=== PATIENT | male | born 1955 | race Caucasian/White ===

== ENCOUNTER 2016-07-13 12:22 | Inpatient (IN) | payer OTHER ==
[~2016-07-13] VITALS: Ht 180.3 cm; Wt 76.9 kg
[2016-07-13] MEDS ORDERED: SOD CHLORIDE 0.9% 150 ML IV STA (12:41)
[2016-07-13] MEDS ORDERED: morphine 4 MG/ML VIAL IV STA (12:55)
[2016-07-13] MEDS ORDERED: TRAM-40 PO (12:58)
[2016-07-13] MEDS ORDERED: OXYC-279 PO (12:58)
[2016-07-13 13:01] LABS: ADD SCAN DIFF NO
[2016-07-13 13:04] LABS: BASOPHIL # 0.1 10^3/ul (0.0-0.1); BASOPHILS % 0.4 % (0.0-2.0); EOSINOPHILS % 0.1 % (0.0-7.0); HEMATOCRIT 41.2 % (42.0-52.0); LYMPHOCYTES # 0.7 10^3/ul (0.8-2.9); LYMPHOCYTES % 4.6 % (15.0-51.0); MEAN CORPUSCULAR HEMOGLOBIN 29.6 pg (29.0-33.0); MEAN CORPUSCULAR VOLUME 87.1 fl (82.0-101.0); MEAN PLATELET VOLUME 9.4 fl (7.4-10.4); MONOCYTE # 1.3 10^3/ul (0.3-0.9); MONOCYTES % 8.7 % (0.0-11.0); NEUTROPHIL # 12.4 10^3/ul (1.6-7.5); NEUTROPHILS % 85.6 % (39.0-77.0); PLATELET COUNT 314 10^3/UL (140-415); RED BLOOD COUNT 4.73 10^6/ul (4.70-6.10); RED CELL DISTRIBUTION WIDTH 14.7 % (11.5-14.5); WHITE BLOOD COUNT 14.5 10^3/ul (4.8-10.8)
--- NOTE | 2016-07-13 13:08 | RADRPT ---
PROCEDURE: XR Chest. CLINICAL INDICATION: Pain TECHNIQUE: Single frontal view of the chest was obtained. COMPARISON: None. FINDINGS: The heart and mediastinum are within normal limits. The lungs are clear. There is no significant pleural effusion or pneumothorax. IMPRESSION: No acute disease. RPTAT: EE Physician Avinash Date Time Electronically viewed and signed by Terence Cole Physician on 07/13/2016 13:08 RA/
[2016-07-13 13:14] LABS: ALBUMIN 3.4 g/dl (3.3-4.9); POTASSIUM 3.5 mmol/L (3.5-5.1)
[2016-07-13 13:16] LABS: BILIRUBIN,INDIRECT 0.2 mg/dl (0-1.1); BILIRUBIN,TOTAL 0.2 mg/dl (0.2-1.3); CREATININE 1.17 mg/dl (0.61-1.24); INR 2.21; PROTIME 24.8 Sec (12.2-14.2); PT RATIO 1.9
[2016-07-13 13:17] LABS: ALBUMIN/GLOBULIN RATIO 0.82; CALCIUM 9.5 mg/dl (8.4-10.2); PARTIAL THROMBOPLASTIN TIME 49.1 Sec (25.0-35.0); TOTAL PROTEIN 7.5 g/dl (6.1-8.1)
--- NOTE | 2016-07-13 13:25 | ERA ---
ER Documentation Chief Complaint Date/Time DATE: 07/13/16 TIME: 13:21 Chief Complaint sent by oncologist for dehydration and poor intake. no diarrhea or vomiting HPI 61-year-old male initially went to an outside hospital approximately 4-5 days ago which time he was diagnosed with a widely metastatic malignancy of uncertain etiology. He was apparently hydrated and sent home. He then followed up at an outside emergency department yesterday where again labs were performed, he was hydrated and referred home. He returned to the emergency department today with a complaint of generalized weakness. Patient's family states he is having dark stools. He has no vomiting or hematemesis. Patient reports being unable to maintain fluids. Patient reports diffuse, nonspecific discomfort essentially all over with no focal localizing pain. Patient saw his oncologist today who referred him to the emergency department for evaluation. ROS All systems reviewed and are negative except as per history of present illness. Medications Home Meds Reported Medications Tramadol Hcl* (Ultram*) 50 Mg Tablet, 50 MG PO Q12 Y for MODERATE PAIN LEVEL 4-6 , TAB 07/13/16 Oxycodone HCl/Acetaminophen (Percocet 5-325 mg Tablet) 1 Each Tablet, 1 EACH PO Q6 Y for SEVERE PAIN LEVEL 7-10, TAB 07/13/16 Allergies Allergies: Coded Allergies: No Known Allergy (Unverified , 07/13/16) PMhx/Soc History of Surgery: Yes (right ankle) Anesthesia Reaction: No Hx Neurological Disorder: No Hx Respiratory Disorders: No Hx Cardiac Disorders: Yes (htn) Hx Psychiatric Problems: No Hx Miscellaneous Medical Probl: Yes (liver ca) Hx Alcohol Use: Yes Hx Substance Use: No Hx Tobacco Use: No Smoking Status: Former smoker FmHx Noncontributory for chief complaint Physical Exam Vitals Vital Signs Date Time Temp Pulse Resp B/P Pulse Ox O2 Delivery O2 Flow Rate FiO2 07/13/16 12:23 97.9 97 20 135/84 98 Physical Exam GENERAL: Patient is frail, ill and sick appearing. HEENT: Pupils equal, round, and reactive to light. EOMI. There is no scleral icterus. NECK: C-spine is soft and supple, there is no meningismus. There is no cervical lymphadenopathy. LUNGS: Clear to auscultation bilaterally. There are no rales, wheezes or rhonchi. HEART: Regular rate and rhythm, no murmurs, clicks, rubs or gallops. ABDOMEN: Soft, mildly distended. Nontender to palpation. No rebound or guarding EXTREMITIES: 1+ edema bilaterally without cyanosis or clubbing NEURO: The patient moves all four extremities with 5/5 strength. Cranial nerves II - XII are intact. Normal gait. Alert and oriented SKIN: There is no apparent rash or petechiae. HEME/LYMPHATIC: There is no evidence of excessive bruising or lymphedema. PSYCHIATRIC: The patient does not appear anxious or depressed. Result Diagram: 07/13/16 1255 07/13/16 1255 Results 24 hrs Laboratory Tests Test 07/13/16 12:55 White Blood Count 14.510^3/ul Red Blood Count 4.7310^6/ul Hemoglobin 14.0g/dl Hematocrit 41.2% Mean Corpuscular Volume 87.1fl Mean Corpuscular Hemoglobin 29.6pg Mean Corpuscular Hemoglobin Concent 34.0g/dl Red Cell Distribution Width 14.7% Platelet Count 05179^3/UL Mean Platelet Volume 9.4fl Neutrophils % 85.6% Lymphocytes % 4.6% Monocytes % 8.7% Eosinophils % 0.1% Basophils % 0.4% Nucleated Red Blood Cells % 0.0/100WBC Neutrophils # 12.410^3/ul Lymphocytes # 0.710^3/ul Monocytes # 1.310^3/ul Eosinophils # 0.010^3/ul Basophils # 0.110^3/ul Nucleated Red Blood Cells # 0.010^3/ul Prothrombin Time 24.8Sec Prothrombin Time Ratio 1.9 INR International Normalized Ratio 2.21 Activated Partial Thromboplast Time 49.1Sec Sodium Level 130mmol/L Potassium Level 3.5mmol/L Chloride Level 94mmol/L Carbon Dioxide Level 19mmol/L Anion Gap 21 Blood Urea Nitrogen 30mg/dl Creatinine 1.17mg/dl Glucose Level 96mg/dl Calcium Level 9.5mg/dl Total Bilirubin 0.2mg/dl Direct Bilirubin 0.00mg/dl Indirect Bilirubin 0.2mg/dl Aspartate Amino Transf (AST/SGOT) 295IU/L Alanine Aminotransferase (ALT/SGPT) 75IU/L Alkaline Phosphatase 608IU/L Total Protein 7.5g/dl Albumin 3.4g/dl Globulin 4.10g/dl Albumin/Globulin Ratio 0.82 Lipase 101U/L Current Medications Medications (Trade) Dose Ordered Sig/Coleman Route PRN Reason Start Time Stop Time Status Last Admin Dose Admin Sodium Chloride (NS) 150 ml @ 150 mls/hr Q1H STAT IV 07/13/16 12:41 07/13/16 13:40 07/13/16 13:01 Morphine Sulfate (morphine) 4 mg ONCE STAT IV 07/13/16 12:55 07/13/16 12:57 DC 07/13/16 13:07 Procedures/MDM Patient was taken to a room, seen and evaluated. Comfort measures were initiated. Diagnostic tests were ordered and reviewed. 3 LEAD RHYTHM STRIP: Normal sinus rhythm without ectopy RADIOLOGY: I reviewed studies from the outside facility demonstrating widely metastatic disease CONSULTATION: Dr. Pham was notified for admission. I spoke with in oncology who will be seeing the patient. REEVALUATION: Patient began hydration and will be admitted to the hospital MEDICAL DECISION MAKIN-year-old male presents to the emergency department with new diagnosis of widely metastatic cancer. At this time, patient presents clearly dehydrated with a failure to thrive. Given the fact the patient has no obvious follow-up available as an outpatient and no known primary treatment, patient will require admission to the hospital for hydration, further diagnostic workup and further stabilization. Departure Diagnosis: Primary Impression: Metastatic cancer Additional Impressions: Dehydration Liver failure SUSAN PARISH Jul 13, 2016 13:25
[2016-07-13 14:11] VITALS: TEMP 97.9
[2016-07-13 15:44] VITALS: Ht 180.3 cm; Wt 76.9 kg
[2016-07-13 15:48] VITALS: BP 154/85; PULSE 98; RESP 18
[2016-07-13] MEDS ORDERED: ACETAMINOPHEN 325 MG TAB PO PRN (16:30)
[2016-07-13] MEDS: DEXTROSE 5%-0.9% NACL 1,000 ML IV SCH (16:37)
--- NOTE | 2016-07-13 20:27 | QN ---
Documentation Comment [id number] MK VALLE MD Jul 13, 2016 20:27
[2016-07-13 21:13] VITALS: BP 131/69; RESP 18
[2016-07-13] MEDS: ONDANSETRON 4 MG INJ IV PRN (23:08)
[2016-07-13] MEDS: morphine 2 MG INJ IV PRN (23:11)
--- NOTE | 2016-07-14 03:18 | HP ---
DATE OF ADMISSION: 07/13/2016 HISTORY OF PRESENT ILLNESS: The patient is a 61-year-old male who was referred here by Dr. Charles's office. The patient was recently diagnosed to have widely metastatic malignancy. Report is not warren ilable. The patient has not been eating and drinking and has presented to this hospital. The patie nt was noted to have WBC 14.5, hematocrit 41.2, platelet count of 314. Sodium 130, potassium 3.5. AST 295, ALT 75, alkaline phosphatase 608. The patient had a chest x-ray done which showed no activ e disease, and the patient is being admitted for further management. PAST MEDICAL HISTORY: Recently diagnosed malignancy. Metastatic carcinoma. ALLERGY HISTORY: NEGATIVE. FAMILY HISTORY: Negative. SOCIAL HISTORY: Positive for smoking and social drinking. MEDICATIONS AT HOME: None. REVIEW OF SYSTEMS HEENT: Unremarkable. RESPIRATORY: Unremarkable. CARDIOVASCULAR: Unremarkable. ABDOMEN: Poor p.o. intake. No nausea, vomiting, hematemesis, melena. EXTREMITIES: Unremarkable. CENTRAL NERVOUS SYSTEM: Unremarkable. PHYSICAL EXAMINATION: GENERAL: The patient is a thin-looking male. VITAL SIGNS: Stable. HEAD: Atraumatic, normocephalic. Pupils equal, reactive to light. NECK: Supple. No JVD. LUNGS: Clear. CARDIOVASCULAR: S1, S2 normal. ABDOMEN: Distended. Bowel sounds positive. Hepatosplenomegaly appreciated. EXTREMITIES: No cyanosis, clubbing, edema. CENTRAL NERVOUS SYSTEM: The patient is awake, alert, no focal deficit. LABORATORY DATA: As mentioned above. Sodium 130, potassium 3.5. IMPRESSION: 1. Metastatic cancer, possible gastrointestinal. 2. Hyponatremia. 3. Anemia. 4. Metabolic acidosis. 5. Leukocytosis. PLAN: Give this patient IV fluid, pain medications, and PPI. The patient will have fully detailed history from Dr. Charles. Dr. Charles will be called for consultation. Orders were done. Dictated By: MK GARCIA/NTS Conf#: [id number] DID#: [id number]
[2016-07-14 05:50] LABS: ADD SCAN DIFF NO; HAAIG REFLEX REFLEX FILED
[2016-07-14 06:04] LABS: ABNORMAL IP MESSAGE 1; BASOPHILS % 0.2 % (0.0-2.0); EOSINOPHILS % 0.1 % (0.0-7.0); HEMOGLOBIN 13.7 g/dl (14.0-18.0); LYMPHOCYTES # 0.7 10^3/ul (0.8-2.9); LYMPHOCYTES % 4.2 % (15.0-51.0); MEAN CORPUSCULAR HGB CONC 33.4 g/dl (32.0-37.0); MEAN CORPUSCULAR VOLUME 86.7 fl (82.0-101.0); MEAN PLATELET VOLUME 9.7 fl (7.4-10.4); MONOCYTE # 1.7 10^3/ul (0.3-0.9); MONOCYTES % 10.5 % (0.0-11.0); NEUTROPHIL # 13.5 10^3/ul (1.6-7.5); NEUTROPHILS % 84.3 % (39.0-77.0); PLATELET COUNT 275 10^3/UL (140-415); RED BLOOD COUNT 4.73 10^6/ul (4.70-6.10); WHITE BLOOD COUNT 16.1 10^3/ul (4.8-10.8)
[2016-07-14 06:07] LABS: POTASSIUM 3.1 mmol/L (3.5-5.1)
[2016-07-14 06:10] LABS: ALBUMIN/GLOBULIN RATIO 0.73; BILIRUBIN,INDIRECT 0.3 mg/dl (0-1.1); BILIRUBIN,TOTAL 0.3 mg/dl (0.2-1.3); CREATININE 0.92 mg/dl (0.61-1.24); TOTAL PROTEIN 7.1 g/dl (6.1-8.1)
[2016-07-14 06:11] LABS: CALCIUM 9.2 mg/dl (8.4-10.2)
[2016-07-14] MEDS: DEXTROSE 5%-0.9% NACL 1,000 ML IV SCH (06:12)
[2016-07-14] MEDS: PANTOPRAZOLE 40 MG INJ IV SCH (06:12)
[2016-07-14] MEDS: morphine 2 MG INJ IV PRN ×2 (06:15→14:30)
[2016-07-14] MEDS: ONDANSETRON 4 MG INJ IV PRN (06:15)
[2016-07-14 06:44] LABS: CANCER ANTIGEN 19-9 6.3 U/ml (0.0-37.0)
[2016-07-14 07:39] LABS: HEPATITIS B CORE ANTIBODY NEGATIVE (NEGATIVE)
[2016-07-14 07:50] VITALS: BP 151/81; RESP 20
--- NOTE | 2016-07-14 09:02 | CONS ---
Date/Time of Note Date/Time of Note DATE: 07/14/16 TIME: 09:02 Assessment/Plan Assessment/Plan Chief Complaint/Hosp Course Mr. Munguia is a 61-year-old male with innumerable hepatic lesions seen on CT at [facility] and [place] although the latter was without contrast presumably due to renal insufficiency, likely metastatic disease versus less likely primary liver cancer. - Patient admitted overnight and given hydration, PPI, pain medications. Renal function has improved with Cr 0.92. - Will order blood and urine cultures to r/o infection given weakness, dehydration, failure to thrive and leukocytosis - Now that renal function has improved, will obtain complete staging with CT chest along with repeat CT abdomen/pelvis with IV contrast. - Would recommend GI evaluation for endoscopy to evaluate for a GI primary. - CEA elevated at 278, CA 19-9 and AFP within normal limits. Hepatitis panel negative. - Will continue to follow. If path obtained from endoscopy and patient's functional status has been optimized, will likely give FOLFOX chemotherapy vs. single agent xeloda. . Problems: Consultation Date/Type/Reason Admit Date/Time Jul 13, 2016 at 13:20 Date of Consultation: Jul 14, 2016 Type of Consultation: Oncology Reason for Consultation Liver metastases Hx of Present Illness The patient is a 61-year-old male who presented to my clinic yesterday 07/13/16 for an initial consultation. He states that he developed back pain starting in April of 2016 associated with abdominal pain and decreased p.o. intake. He is so weak that he spends most of the day in bed although is able to ambulate to go to the bathroom. He has not eaten for more than a week and has been losing weight due to decreased appetite and lack of taste. Thus, he has lost 25 -30 pounds over the last few months. He is still able to drink water according to his sister. The patients sister states that he was seen in the [facility] ER on Sunday and was given IV fluids at that time. He had a CT abdomen and pelvis with contrast on 07/10/2016 that demonstrated innumerable enhancing hepatic lesions suggestive of metastatic disease. In addition, there is marked retroperitoneal, portal, mesenteric, and right inguinal lymphadenopathy, as well as retroperitoneal nodularity and an enhancing prevascular nodule concerning for metastatic disease. There are bilateral adrenal nodules as described above. There is a 1.8 cm hypodense lesion seen abutting definitively within the right kidney corresponding to the right renal finding on prior ultrasound. In addition, there is an enhancing or intrinsically hypodense 1.9 cm focus in the left kidney. Consider further evaluation with dedicated renal protocol CT or MRI on an emergent outpatient basis. There is no definite CT evidence of colonic primary lesion. Nonspecific thickening of the ascending/ descending and sigmoid colon, possibly related to bowel collapse. Recommend correlation with finding on colonoscopy if clinically indicated. No evidence of bowel obstruction. The patient also had an abdominal ultrasound on 07/10/2016 that demonstrated numerous hepatic lesions incompletely characterized on ultrasound, but concerning for metastatic disease, as well as a small isoechoic lesion measuring 1.4 cm in the interpolar region of the right kidney without internal color flow and biliary sludge without evidence of cholecystitis. There was no evidence of ascites. The patient was also seen at [place] ER last night and given IV fluids, but not admitted given that he had an appointment with me today. At that time, his creatinine was 1.49 with bilirubin of 1.2, alkaline phosphatase 580, ALT 56, and AST 42. He had a CT abdomen and pelvis without contrast presumably due to his renal dysfunction that demonstrated hepatomegaly with multiple hepatic masses suspicious for metastatic disease and bilateral adrenal nodules with metastatic disease not excluded and bilateral dense kidneys suspicious for medical renal disease with a 1.9 x 1.8 cm left hemorrhagic renal cyst versus mass and bilateral simple renal cysts, as well as retroperitoneal, mesenteric, right pelvic, and right inguinal lymphadenopathy. There is evidence of diverticulosis, but no evidence of diverticulitis and small amount of free fluid in the pelvis. There is possible gallbladder sludge. The patient also had a chest x-ray that demonstrated bilateral scarring with no acute infiltrates. The patient denies any history of known liver disease. He has noticed black stools for the past week every couple of days. He has never had a colonoscopy. Of note, his mother had colon cancer at age 69 with metastasis to the liver. Since admission, the patient states that he feels slightly better. Past Medical History None per patient Family History Significant Family History: cancer (Mother had colon cancer at age 69 as above. ) Social History He smoked 30 years for two packs a day, quit eight years ago. Drinks beer. Smoking Status: Former smoker Exam/Review of Systems Vital Signs Vitals Vital Signs Date Time Temp Pulse Resp B/P Pulse Ox O2 Delivery O2 Flow Rate FiO2 07/14/16 07:50 98.6 60 20 151/81 94 07/13/16 15:48 Room Air Intake and Output 07/13/16 07/13/16 07/14/16 15:00 23:00 07:00 Intake Total 1380 ml Balance 1380 ml Exam GENERAL: The patient is disheveled, weak-appearing male lying on his side on the bed. HEENT: Disheveled, atraumatic. Pupils equally round and reactive to light. Oropharynx clear. NECK: Supple. CARDIOVASCULAR: Regular rate and rhythm. No murmurs, rubs, or gallops. PULMONARY: Clear to auscultation bilaterally. ABDOMEN: Soft and distended. No appreciable fluid wave. Mildly tender to palpation. EXTREMITIES: No cyanosis, clubbing, or edema. Results Result Diagram: 07/14/16 0530 07/14/16 0530 Results 24 hrs Laboratory Tests Test 07/13/16 12:55 07/14/16 05:30 White Blood Count 14.5 H 16.1 H Red Blood Count 4.73 4.73 Hemoglobin 14.0 13.7 L Hematocrit 41.2 L 41.0 L Mean Corpuscular Volume 87.1 86.7 Mean Corpuscular Hemoglobin 29.6 29.0 Mean Corpuscular Hemoglobin Concent 34.0 33.4 Red Cell Distribution Width 14.7 H 15.0 H Platelet Count 314 275 Mean Platelet Volume 9.4 9.7 Neutrophils % 85.6 H 84.3 H Lymphocytes % 4.6 L 4.2 L Monocytes % 8.7 10.5 Eosinophils % 0.1 0.1 Basophils % 0.4 0.2 Nucleated Red Blood Cells % 0.0 0.0 Neutrophils # 12.4 H 13.5 H Lymphocytes # 0.7 L 0.7 L Monocytes # 1.3 H 1.7 H Eosinophils # 0.0 0.0 Basophils # 0.1 0.0 Nucleated Red Blood Cells # 0.0 0.0 Prothrombin Time 24.8 H Prothrombin Time Ratio 1.9 INR International Normalized Ratio 2.21 Activated Partial Thromboplast Time 49.1 H Sodium Level 130 L 137 Potassium Level 3.5 3.1 L Chloride Level 94 L 101 Carbon Dioxide Level 19 L 23 Anion Gap 21 H 16 Blood Urea Nitrogen 30 H 23 H Creatinine 1.17 0.92 Glucose Level 96 132 Calcium Level 9.5 9.2 Total Bilirubin 0.2 0.3 Direct Bilirubin 0.00 0.00 Indirect Bilirubin 0.2 0.3 Aspartate Amino Transf (AST/SGOT) 295 H 297 H Alanine Aminotransferase (ALT/SGPT) 75 H 67 Alkaline Phosphatase 608 H 478 H Total Protein 7.5 7.1 Albumin 3.4 3.0 L Globulin 4.10 H 4.10 H Albumin/Globulin Ratio 0.82 0.73 Lipase 101 Carcinoembryonic Antigen 278.0 H CA 19-9 Antigen 6.3 Hepatitis B Surface Antigen NEGATIVE Hepatitis B Core Total Antibody NEGATIVE Hepatitis C Antibody NEGATIVE Medications Medications Current Medications Dextrose/Sodium Chloride (D5-NS) 1,000 ml @ 75 mls/hr [id number] IV Last administered on 07/14/16 06:12; Admin Dose 75 MLS/HR; Start 07/13/16 at 16:30 Pantoprazole (Protonix Iv) 40 mg DAILY@06 IV Last administered on 07/14/16 06: 12; Admin Dose 40 MG; Start 07/14/16 at 06:00 Acetaminophen (Tylenol Tab) 650 mg Q6H PRN PO PAIN AND OR ELEVATED TEMP; Start 07/13/16 at 16:30 Ondansetron HCl (Zofran Inj) 4 mg Q4H PRN IV NAUSEA AND/OR VOMITING Last administered on 07/14/16 06:15; Admin Dose 4 MG; Start 07/13/16 at 16:30 Morphine Sulfate (morphine) 2 mg Q4H PRN IV PAIN LEVEL 7-10 Last administered on 07/14/16 06:15; Admin Dose 2 MG; Start 07/13/16 at 16:30 Influenza Virus Vaccine (Fluzone) 0.5 ml ONCE ONCE IM* ; Start 07/14/16 at 11:00 ; Stop 07/14/16 at 11:01 SRI RODRIGUEZ MD Jul 14, 2016 09:02
[2016-07-14] MEDS ORDERED: INFLUENZA VIRUS VACCINE 0.5 ML SYG IM* ONE (11:00)
[2016-07-14] MEDS ORDERED: IOHEXOL 300MG/ML 30 ML BTL ONE (12:39)
[2016-07-14] MEDS ORDERED: SOD CHLORIDE 0.9% 100 ML ONE (12:39)
--- NOTE | 2016-07-14 13:55 | RADRPT ---
PROCEDURE: CT scan of the chest, abdomen and pelvis with and without IV contrast. CLINICAL INDICATION: Liver metastases. Search for primary tumor. TECHNIQUE: Thin section axial, coronal and sagittal images were performed through the abdomen and pelvis without contrast and then following the injection of 100 cc of Isovue 300. Low-dose protocol imaging was utilized. One or more of the following dose reduction techniques were used: - Automated exposure control. - Adjustment of the mA and/or kV according to patient size. Use of iterative reconstruction technique. Radiation Dose: CTDI: 13.9 and DLP: 1106. COMPARISON: No. FINDINGS: CT chest: Lungs, mediastinum and pleural space: Thyroid gland is normal in size. No enlarged supraclavicular o r axillary lymph nodes are identified. An enlarged lymph node is identified ventral to the left main pulmonary artery measuring up to 1.4 c m and minimal transverse diameter. An enlarged superior mediastinal lymph node measuring up to 10.4 mm is noted superior to the aortic arch. A 9.2 mm lymph node is identified nearby. There are subc arinal lymph nodes measuring up to 1.4 cm in minimal transverse diameter A 2.7 by 2.6 cm by 2.4 cm mass is identified in the left hilum. . Heart: There are vascular calcifications in the left descending coronary artery. The heart is clarissa l in size. No pericardial effusion is present. There is atelectasis in the lingula. A small mucous plug is suspected in the distal right main stem bronchus. A trace left pleural effusion is suspected. No right pleural effusion is noted. There are vascular calcifications in the aortic arch. CT abdomen pelvis: The liver, common bile duct and gallbladder: There are multiple hepatic metastases. No intrahepatic biliary ductal dilatation is identified. The hepatic and portal veins are patent. The gallbladder and gallbladder wall are normal. Pancreas: The pancreas is displaced inferiorly. The pancreas itself is normal. No pancreatic mass is identified. Gastrointestinal: The esophagus, stomach and small bowel loops are of normal caliber. There is flui d in the descending portion of the duodenum. There is a small amount of ascitic fluid adjacent to th e gallbladder and duodenum. There is ascitic fluid in the pelvis. There are bilateral inguinal glenna ias which contain fat. Kidneys and bladder : There are multiple benign hepatic cysts. No solid renal mass is identified. There is no evidence of nephrolithiasis. Trace fluid is noted in the pouch of Abdulkadir. Some perinep hric stranding is present. Adrenal glands: A 1.7 cm mass is noted in conjunction with the left adrenal gland. A 1.5 cm mass is noted in the right adrenal gland. Spleen: Normal. Lymph nodes: There are multiple enlarged mesenteric and periportal lymph nodes. There are multiple e nlarged periaortic lymph nodes adjacent to the upper mid and lower abdominal aorta. There is a 2 c m minimal transverse diameter enlarged lymph node along the right pelvic sidewall. A 7 mm lymph node s noted dorsal to the upper third of the left kidney. 9.7 mm lymph node is noted in the retroperito neum superior and dorsal to the right kidney. There are an large right inguinal lymph nodes measuring up to 2.3 cm. There is a 1.7 cm adjacent a 0 .7 mm and adjacent in the right inguinal area. There is a 5.5 mm lymph node in the left inguinal can al. There is a adjacent 7.1 mm lymph node in the left inguinal canal. There are enlarged retrocrura l lymph nodes adjacent to the diaphragm measuring up to 1.7 cm to right of midline and up to 1 point 1 cm to the left of midline. There is stranding in the mesentery adjacent to the enlarged mesenteri c lymph node which may be the result of carcinomatosis. Reproductive system: The seminal vesicles and prostate gland are normal. Bony elements: There are degenerative changes in the thoracic and lumbar spine. No bone metastasis is identified. Vasculature: There are atherosclerotic vascular calcifications in the profunda femoris arteries, sup erficial femoral artery, common femoral arteries, internal and external iliac arteries, abdominal ao rta near the origins of the renal arteries. IMPRESSION: 1. A left hilar mass measuring up to 2.4 cm in height by 2.7 cm transverse by 2.6 cm AP is identifi ed to may be the result of the lung cancer. 2. There enlarged superior mediastinal and mediastinal lymph nodes. 3. Atherosclerotic vascular disease involving the aortic arch and coronary arteries. 4. Trace right pleural effusion. 5. Multiple hepatic metastases. 6. Extensive periportal, mesenteric, retroperitoneal metastatic lymphadenopathy. Additional metasta tic retrocrural, pelvic sidewall and inguinal lymph nodes are identified as described. 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 7. Bilateral benign hepatic cysts. 8. Bilateral adrenal masses as described. RPTAT:AAJJ Bradley Stewart Physician Date Time Electronically viewed and signed by Bradley Stewart Physician on 07/14/2016 13:54 ELVIS/
--- NOTE | 2016-07-14 14:51 | PN ---
Date/Time of Note Date/Time of Note DATE: 07/14/16 TIME: 14:43 Assessment/Plan VTE Prophylaxis VTE Prophylaxis Intervention: SCD's Lines/Catheters IV Catheter Type (from Nrs): Peripheral IV Assessment/Plan Chief Complaint/Hosp Course 1. Metastatic cancer, possible gastrointestinal. 2. Hyponatremia. 3. Anemia. 4. Metabolic acidosis. 5. Leukocytosis. 6. Morbid obesity Problems: Assessment/Plan 1. Oncology Dr Hearn 2. Antibiotic therapy per dr Lomeli Subjective 24 Hr Interval Summary Constitutional: other (pain in abdomen) Gastrointestinal: constipation, pain Genitourinary: no complaints Skin: no complaints Exam/Review of Systems Vital Signs Vitals Vital Signs Date Time Temp Pulse Resp B/P Pulse Ox O2 Delivery O2 Flow Rate FiO2 07/14/16 07:50 98.6 60 20 151/81 94 07/13/16 15:48 Room Air Intake and Output 07/13/16 07/13/16 07/14/16 15:00 23:00 07:00 Intake Total 1380 ml Balance 1380 ml Exam Constitutional: alert, oriented Psych: no complaints Head: normocephalic Eyes: nl conjunctiva Neck: supple Respiratory: clear to auscultation Cardiovascular: regular rate and rhythm Gastrointestinal: ascites, bowel sounds (decresed) Musculoskeletal: nl extremities to inspection Results Result Diagram: 07/14/16 0530 07/14/16 0530 Results 24 hrs Laboratory Tests Test 07/14/16 05:30 White Blood Count 16.1 H Red Blood Count 4.73 Hemoglobin 13.7 L Hematocrit 41.0 L Mean Corpuscular Volume 86.7 Mean Corpuscular Hemoglobin 29.0 Mean Corpuscular Hemoglobin Concent 33.4 Red Cell Distribution Width 15.0 H Platelet Count 275 Mean Platelet Volume 9.7 Neutrophils % 84.3 H Lymphocytes % 4.2 L Monocytes % 10.5 Eosinophils % 0.1 Basophils % 0.2 Nucleated Red Blood Cells % 0.0 Neutrophils # 13.5 H Lymphocytes # 0.7 L Monocytes # 1.7 H Eosinophils # 0.0 Basophils # 0.0 Nucleated Red Blood Cells # 0.0 Sodium Level 137 Potassium Level 3.1 L Chloride Level 101 Carbon Dioxide Level 23 Anion Gap 16 Blood Urea Nitrogen 23 H Creatinine 0.92 Glucose Level 132 Calcium Level 9.2 Total Bilirubin 0.3 Direct Bilirubin 0.00 Indirect Bilirubin 0.3 Aspartate Amino Transf (AST/SGOT) 297 H Alanine Aminotransferase (ALT/SGPT) 67 Alkaline Phosphatase 478 H Total Protein 7.1 Albumin 3.0 L Globulin 4.10 H Albumin/Globulin Ratio 0.73 Alpha Fetoprotein 2.61 Carcinoembryonic Antigen 278.0 H CA 19-9 Antigen 6.3 Hepatitis B Surface Antigen NEGATIVE Hepatitis B Core Total Antibody NEGATIVE Hepatitis C Antibody NEGATIVE Medications Medications Current Medications Dextrose/Sodium Chloride (D5-NS) 1,000 ml @ 75 mls/hr [id number] IV Last administered on 07/14/16 06:12; Admin Dose 75 MLS/HR; Start 07/13/16 at 16:30 Pantoprazole (Protonix Iv) 40 mg DAILY@06 IV Last administered on 07/14/16 06: 12; Admin Dose 40 MG; Start 07/14/16 at 06:00 Acetaminophen (Tylenol Tab) 650 mg Q6H PRN PO PAIN AND OR ELEVATED TEMP; Start 07/13/16 at 16:30 Ondansetron HCl (Zofran Inj) 4 mg Q4H PRN IV NAUSEA AND/OR VOMITING Last administered on 07/14/16 06:15; Admin Dose 4 MG; Start 07/13/16 at 16:30 Morphine Sulfate (morphine) 2 mg Q4H PRN IV PAIN LEVEL 7-10 Last administered on 07/14/16 14:30; Admin Dose 2 MG; Start 07/13/16 at 16:30 GEORGETTE MCDANIELS Jul 14, 2016 14:51
--- NOTE | 2016-07-14 16:02 | CONS ---
DATE OF ADMISSION: 07/13/2016 DATE OF CONSULTATION: 07/14/2016 INFECTIOUS DISEASE CONSULTATION REASON FOR CONSULTATION: Antibiotic management. HISTORY OF PRESENT ILLNESS: The patient is a 61-year-old male referred by Dr. Charles. Recently diag nosed to have widely metastatic malignancy. Etiology unclear. Hemoglobin 41.2, platelet count 314, 000. Chest x-ray showed no active disease. The patient was diagnosed with metastatic carcinoma. T he patient was noted to have generalized weakness with dark stools. His other problems include hist ory of surgery to the right ankle and liver cancer. HABITS: He was a former smoker, does not drink or abuse drugs. ALLERGIES: NONE TO PENICILLIN, SULFA, OR FOODS. MEDICATIONS: Per chart. REVIEW OF SYSTEMS: Noncontributory. PHYSICAL EXAMINATION: GENERAL: The patient is a frail, ill-appearing individual who is awake, responsive, in no acute dis tress. VITAL SIGNS: Stable. He is afebrile. SKIN: Without generalized rash. HEENT: Within normal limits. NECK: Supple. LYMPH NODES: None palpable. CHEST: Decreased breath sounds at the bases. HEART: Without murmur or gallop. ABDOMEN: Soft, nontender, without organosplenomegaly or masses. EXTREMITIES: Without cyanosis or clubbing. He has 1+ pedal edema. RECTAL AND GENITAL: Deferred. NEUROLOGIC: No focal neurological abnormalities. LABORATORY DATA: White count was 14.5 on admission, H and H 14 and 41.2, platelet count 314,000, BU N and creatinine 30 and 1.17. The patient was seen by GI, I believe, noted to have innumerable hepatic lesions seen on CT at [facility] [place], most likely primary liver cancer according to Dr. Anderson. Abdominal ultrasound on July 10 demonstrated numerous hepatic lesions. The patient was also seen by Dr. Charles. The p atient noted to have a leukocytosis of 16.1 and was started on no particular antibiotic therapy. A chest x-ray showed no acute disease. CT scan of the abdomen and pelvis showed multiple hepatic meta stases, multiple enlarged mesenteric and periportal lymph nodes, large right inguinal lymph node. S eminal vesicles and prostate gland are normal. Degenerative changes in the thoracic and lumbar spin e. Left hilar mass measuring 2.4 cm in height x 2.7 cm x 2.6 cm, maybe be the result of lung cancer with the enlarged superior mediastinal and regular mediastinal lymph nodes. Blood culture and uri ne cultures were done. IMPRESSION AND PLAN: The patient currently is afebrile. I think at this point we can continue him off of antibiotic therapy and assume that the elevated white count may be related to his underlying malignancy; however, we do not see urine collected, although it was ordered today. I will dictate m y findings to Dr. Ankit mancia and to Dr. Anderson and Dr. Rylee Charles. Dictated By: JAGDISH RAMIRES MD, JD/PENNY Conf#: [id number] DID#: [id number]
[2016-07-14 16:27] LABS: ADD UMIC YES; URINE BILIRUBIN (Dip) 1+ (NEGATIVE); URINE BLOOD (Dip) 2+ (NEGATIVE); URINE COLOR YELLOW (YELLOW); URINE GLUCOSE (Dip) NEGATIVE (NEGATIVE); URINE KETONES (Dip) NEGATIVE (NEGATIVE); URINE LEUKOCYTE ESTERASE (Dip) NEGATIVE (NEGATIVE); URINE NITRITE (Dip) NEGATIVE (NEGATIVE); URINE TOTAL PROTEIN (Dip) TRACE (NEGATIVE); URINE UROBILINOGEN (Dip) 0.2 E.U./dL (0.1-1.0)
[2016-07-14 16:43] LABS: URIC ACID CRYSTALS,URINE MANY
[2016-07-14 16:44] LABS: BACTERIA,URINE FEW; URINE RBCS 0-2 /HPF (0)
[2016-07-14 16:45] LABS: ICTOTEST NEGATIVE (NEGATIVE)
[2016-07-14 20:12] VITALS: BP 132/73; RESP 22
[2016-07-15] MEDS: DEXTROSE 5%-0.9% NACL 1,000 ML IV SCH ×3 (00:15→21:14)
[2016-07-15] MEDS: PANTOPRAZOLE 40 MG INJ IV SCH (05:42)
[2016-07-15 07:38] LABS: ADD SCAN DIFF NO
[2016-07-15 07:47] LABS: ABNORMAL IP MESSAGE 1; BASOPHILS % 0.2 % (0.0-2.0); EOSINOPHILS % 0.2 % (0.0-7.0); HEMATOCRIT 38.9 % (42.0-52.0); LYMPHOCYTES # 0.7 10^3/ul (0.8-2.9); LYMPHOCYTES % 4.4 % (15.0-51.0); MEAN CORPUSCULAR HEMOGLOBIN 29.1 pg (29.0-33.0); MEAN CORPUSCULAR HGB CONC 33.4 g/dl (32.0-37.0); MEAN CORPUSCULAR VOLUME 87.2 fl (82.0-101.0); MONOCYTE # 1.6 10^3/ul (0.3-0.9); MONOCYTES % 10.4 % (0.0-11.0); NEUTROPHIL # 12.5 10^3/ul (1.6-7.5); PLATELET COUNT 260 10^3/UL (140-415); RED BLOOD COUNT 4.46 10^6/ul (4.70-6.10); RED CELL DISTRIBUTION WIDTH 15.4 % (11.5-14.5); WHITE BLOOD COUNT 14.9 10^3/ul (4.8-10.8)
[2016-07-15 08:00] VITALS: BP 151/84; RESP 20
[2016-07-15 09:01] LABS: CALCIUM 8.9 mg/dl (8.4-10.2); CREATININE 0.93 mg/dl (0.61-1.24)
[2016-07-15 09:09] LABS: POTASSIUM 2.9 mmol/L (3.5-5.1)
[2016-07-15] MEDS: POTASSIUM CHLORIDE 250 ML IVPB SCH ×2 (10:55→15:37)
[2016-07-15] MEDS ORDERED: BISACODYL 10 MG SUPP PR PRN (15:00)
--- NOTE | 2016-07-15 15:02 | PN ---
Date/Time of Note Date/Time of Note DATE: 07/15/16 TIME: 15:01 Assessment/Plan VTE Prophylaxis VTE Prophylaxis Intervention: SCD's Lines/Catheters IV [facility]): Peripheral IV Assessment/Plan Chief Complaint/Hosp Course 1. Metastatic cancer, 2. Hyponatremia. 3. Anemia. 4. Metabolic acidosis. 5. Leukocytosis. Problems: Assessment/Plan 2. continue hydration IV Subjective 24 Hr Interval Summary Constitutional: poor po Eyes: no complaints ENT: no complaints Respiratory: no complaints Gastrointestinal: constipation Genitourinary: no complaints Musculoskeletal: back pain, restricted range of motion Skin: no complaints Exam/Review of Systems Vital Signs Vitals Vital Signs Date Time Temp Pulse Resp B/P Pulse Ox O2 Delivery O2 Flow Rate FiO2 07/15/16 08:00 97.7 95 20 151/84 93 07/13/16 15:48 Room Air Intake and Output 07/14/16 07/14/16 07/15/16 15:00 23:00 07:00 Intake Total 1100 ml 930 ml Balance 1100 ml 930 ml Exam Constitutional: alert, oriented Psych: no complaints Head: normocephalic Eyes: nl conjunctiva ENMT: nl external ears & nose Neck: supple Respiratory: diminished breath sounds Results Result Diagram: 07/15/16 0620 07/15/16 0620 Results 24 hrs Laboratory Tests Test 07/14/16 16:00 07/15/16 06:20 Urine Color YELLOW Urine Clarity CLOUDY H Urine pH 6.0 Urine Specific [place] 1.010 Urine Ketones NEGATIVE Urine Nitrite NEGATIVE Urine Bilirubin 1+ H Urine Ictotest NEGATIVE Urine Urobilinogen 0.2 E.U./dL Urine Leukocyte Esterase NEGATIVE Urine Microscopic RBC 0-2 Urine Microscopic WBC 2-5 Urine Uric Acid Crystals MANY Urine Bacteria FEW Urine Hemoglobin 2+ H Urine Glucose NEGATIVE Urine Total Protein TRACE White Blood Count 14.9 H Red Blood Count 4.46 L Hemoglobin 13.0 L Hematocrit 38.9 L Mean Corpuscular Volume 87.2 Mean Corpuscular Hemoglobin 29.1 Mean Corpuscular Hemoglobin Concent 33.4 Red Cell Distribution Width 15.4 H Platelet Count 260 Mean Platelet Volume 10.0 Neutrophils % 84.0 H Lymphocytes % 4.4 L Monocytes % 10.4 Eosinophils % 0.2 Basophils % 0.2 Nucleated Red Blood Cells % 0.0 Neutrophils # 12.5 H Lymphocytes # 0.7 L Monocytes # 1.6 H Eosinophils # 0.0 Basophils # 0.0 Nucleated Red Blood Cells # 0.0 Sodium Level 135 Potassium Level 2.9 *L Chloride Level 103 Carbon Dioxide Level 20 L Anion Gap 15 Blood Urea Nitrogen 17 Creatinine 0.93 Glucose Level 106 Calcium Level 8.9 Medications Medications Current Medications Dextrose/Sodium Chloride (D5-NS) 1,000 ml @ 75 mls/hr [id number] IV Last administered on 07/15/16 00:15; Admin Dose 75 MLS/HR; Start 07/13/16 at 16:30 Pantoprazole (Protonix Iv) 40 mg DAILY@06 IV Last administered on 07/15/16 05: 42; Admin Dose 40 MG; Start 07/14/16 at 06:00 Acetaminophen (Tylenol Tab) 650 mg Q6H PRN PO PAIN AND OR ELEVATED TEMP; Start 07/13/16 at 16:30 Ondansetron HCl (Zofran Inj) 4 mg Q4H PRN IV NAUSEA AND/OR VOMITING Last administered on 07/14/16 06:15; Admin Dose 4 MG; Start 07/13/16 at 16:30 Morphine Sulfate 2 mg 2 mg Q4H PRN IV PAIN LEVEL 7-10 Last administered on 07/14 14:30; Admin Dose 2 MG; Start 07/13/16 at 16:30 Potassium Chloride (KCl 40 MEQ/250 ML NS) 250 ml @ 62.5 mls/hr Q4H IVPB Last administered on 07/15/16 10:55; Admin Dose 62.5 MLS/HR; Start 07/15/16 at 09:30; Stop 07/15/16 at 17:29 GEORGETTE MCDANIELS Jul 15, 2016 15:02
--- NOTE | 2016-07-15 15:02 | CONS ---
Date/Time of Note Date/Time of Note DATE: 07/15/16 TIME: 14:59 Assessment/Plan Assessment/Plan Chief Complaint/Hosp Course Mr. Munguia is a 61-year-old male with innumerable hepatic lesions seen on CT at [facility] and [place] although the latter was without contrast presumably due to renal insufficiency, likely metastatic disease versus less likely primary liver cancer. - Patient admitted overnight and given hydration, PPI, pain medications. Renal function has improved with Cr 0.92. - Will order blood and urine cultures to r/o infection given weakness, dehydration, failure to thrive and leukocytosis - Now that renal function has improved, will obtain complete staging with CT chest along with repeat CT abdomen/pelvis with IV contrast. - Would recommend GI evaluation for endoscopy to evaluate for a GI primary. Dr. Stahl has been called - CEA elevated at 278, CA 19-9 and AFP within normal limits. Hepatitis panel negative. - Will continue to follow. If path obtained from endoscopy and patient's functional status has been optimized, will likely give FOLFOX chemotherapy vs. single agent xeloda. . Problems: Consultation Date/Type/Reason Admit Date/Time Jul 13, 2016 at 13:20 Initial Consult Date 07/14/16 Type of Consultation: Oncology Reason for Consultation liver mets. unknown primary cancer Referring Provider: MK VALLE 24 HR Interval Summary Free Text/Dictation no acute overnight events. patient remains very weak. no bloody stools Exam/Review of Systems Vital Signs Vitals Vital Signs Date Time Temp Pulse Resp B/P Pulse Ox O2 Delivery O2 Flow Rate FiO2 07/15/16 08:00 97.7 95 20 151/84 93 07/13/16 15:48 Room Air Intake and Output 07/14/16 07/14/16 07/15/16 15:00 23:00 07:00 Intake Total 1100 ml 930 ml Balance 1100 ml 930 ml Exam Constitutional: alert, distress, frail Psych: anxiety, depression Head: normocephalic Eyes: nl conjunctiva ENMT: nl external ears & nose Neck: non-tender, supple Respiratory: clear to auscultation Cardiovascular: regular rate and rhythm Gastrointestinal: distended, firm Musculoskeletal: nl extremities to inspection Neurological: MANAGED CARE PROVIDER II-XII intact Results Result Diagram: 07/15/1620 07/15/16 0620 Results 24 hrs Laboratory Tests Test 07/14/16 16:00 07/15/16 06:20 Urine Color YELLOW Urine Clarity CLOUDY H Urine pH 6.0 Urine Specific [place] 1.010 Urine Ketones NEGATIVE Urine Nitrite NEGATIVE Urine Bilirubin 1+ H Urine Ictotest NEGATIVE Urine Urobilinogen 0.2 E.U./dL Urine Leukocyte Esterase NEGATIVE Urine Microscopic RBC 0-2 Urine Microscopic WBC 2-5 Urine Uric Acid Crystals MANY Urine Bacteria FEW Urine Hemoglobin 2+ H Urine Glucose NEGATIVE Urine Total Protein TRACE White Blood Count 14.9 H Red Blood Count 4.46 L Hemoglobin 13.0 L Hematocrit 38.9 L Mean Corpuscular Volume 87.2 Mean Corpuscular Hemoglobin 29.1 Mean Corpuscular Hemoglobin Concent 33.4 Red Cell Distribution Width 15.4 H Platelet Count 260 Mean Platelet Volume 10.0 Neutrophils % 84.0 H Lymphocytes % 4.4 L Monocytes % 10.4 Eosinophils % 0.2 Basophils % 0.2 Nucleated Red Blood Cells % 0.0 Neutrophils # 12.5 H Lymphocytes # 0.7 L Monocytes # 1.6 H Eosinophils # 0.0 Basophils # 0.0 Nucleated Red Blood Cells # 0.0 Sodium Level 135 Potassium Level 2.9 *L Chloride Level 103 Carbon Dioxide Level 20 L Anion Gap 15 Blood Urea Nitrogen 17 Creatinine 0.93 Glucose Level 106 Calcium Level 8.9 Medications Medications Current Medications Dextrose/Sodium Chloride (D5-NS) 1,000 ml @ 75 mls/hr [id number] IV Last administered on 07/15/16 00:15; Admin Dose 75 MLS/HR; Start 07/13/16 at 16:30 Pantoprazole (Protonix Iv) 40 mg DAILY@06 IV Last administered on 07/15/16 05: 42; Admin Dose 40 MG; Start 07/14/16 at 06:00 Acetaminophen (Tylenol Tab) 650 mg Q6H PRN PO PAIN AND OR ELEVATED TEMP; Start 07/13/16 at 16:30 Ondansetron HCl (Zofran Inj) 4 mg Q4H PRN IV NAUSEA AND/OR VOMITING Last administered on 07/14/16 06:15; Admin Dose 4 MG; Start 07/13/16 at 16:30 Morphine Sulfate 2 mg 2 mg Q4H PRN IV PAIN LEVEL 7-10 Last administered on 07/14 14:30; Admin Dose 2 MG; Start 07/13/16 at 16:30 Potassium Chloride (KCl 40 MEQ/250 ML NS) 250 ml @ 62.5 mls/hr Q4H IVPB Last administered on 07/15/16t 10:55; Admin Dose 62.5 MLS/HR; Start 07/15/16 at 09:30; Stop 07/15/16 at 17:29 ELOISA RAMIREZ M.D. Jul 15, 2016 15:01
[2016-07-15] MEDS ORDERED: BISACODYL (EC) 5 MG TAB PO ONE (20:00)
[2016-07-15 20:31] VITALS: BP 151/84; RESP 16
--- NOTE | 2016-07-16 03:39 | CONS ---
DATE OF ADMISSION: 07/13/2016 DATE OF CONSULTATION: TYPE OF CONSULTATION: Gastroenterology. HISTORY OF PRESENT ILLNESS: A 61-year-old male admitted to the hospital for abdominal pain, back pa in, anorexia. The patient is basically bedridden, has not been eating for the last few days. He is practically only on liquids. He has lost 25 to 30 pounds and also is chronically constipated. He had gone to the emergency room at [facility], and a CAT scan was done which showed mets in the liver and retroperitoneal lymphadenopathy and mediastinal lymphadenopathy. The patient's mother had colo n cancer with mets at the age of 69. He never had a colonoscopy. No GI bleeding. He did complain of black stool for the past few days. No or [place] problem. No cough or respiratory issue. PAST MEDICAL HISTORY: None. FAMILY HISTORY: Mother had colon cancer with mets at the age of 69. SOCIAL HISTORY: He smoked for 30 years, 2 packs a day, quit 8 years ago. He drinks beer on a regul ar basis. No recreational drugs. REVIEW OF SYSTEMS: Otherwise negative. PHYSICAL EXAMINATION: VITALS: Stable. HEENT: Unremarkable. NECK: Supple, no thyromegaly, no lymphadenopathy. CARDIOVASCULAR: No murmur, gallop, or click. LUNGS: Clear. ABDOMEN: Benign. EXTREMITIES: No edema. CENTRAL NERVOUS SYSTEM: Grossly within normal limits. LABORATORY DATA: Alkaline phosphatase is 478, SGOT is 278. CEA is 278. CA 19-9 was within normal limits. Hepatitis studies are were within normal limits. WBC 16.1, hematocrit is 41. IMPRESSION: 1. Metastatic liver disease. 2. Retroperitoneal and mediastinal lymphadenopathy. 3. High CEA. 4. History of black stool. 5. Constipation. 6. Strong family history of colon cancer. 7. Anorexia and weight loss. PLAN: Correct the coagulopathy. The patient will be scheduled for EGD and colonoscopy on Sunday. Discussed with the patient and has agreed. Dictated By: ZACH BROOKS/PENNY Conf#: [id number] DID#: [id number] CC: LEOISA RAMIREZ MD; KM VALLE MD;*EndCC*
--- NOTE | 2016-07-16 04:58 | PN ---
DATE: 07/15/2016 INFECTIOUS DISEASE PROGRESS NOTE SUBJECTIVE: No acute events. The patient is lying comfortably in bed, afebrile, in no distress. LABORATORY DATA: WBC 14.9, platelets 260, neutrophils 84, no bands. BUN 17, creatinine 0.93. MICROBIOLOGY: Blood and urine culture negative. ANTIMICROBIALS: The patient is off antibiotics. DIAGNOSTICS: CT of the abdomen and pelvis revealed left hilar mass, large superior mediastinal lymp h nodes, right pleural effusion, multiple hepatic metastases, bilateral adrenal masses. OBJECTIVE: GENERAL: This is well-developed, well-nourished elderly man who is awake, in no distress. HEENT: Atraumatic, normocephalic. Sclerae anicteric. Buccal mucosa dry. NECK: Supple. Trachea midline. CHEST: Rise symmetrical. Breath sounds diminished. HEART: S1, S2. ABDOMEN: Soft. Bowel tones present. EXTREMITIES: Without cyanosis. ASSESSMENT: 1. Systemic inflammatory response syndrome with leukocytosis, likely secondary to metastatic diseas e. 2. Dehydration. 3. Tobacco use. PLAN: The patient is clinically stable, afebrile. He is being followed by oncology. Cultures had been negative. He is off antibiotics. We will observe him off antibiotics. Dictated By: WALTER GORE CONSTRUCTION SUPERVISOR for JAGDISH RANGEL/PENNY Conf#: [id number] DID#: [id number]
[2016-07-16] MEDS: PANTOPRAZOLE 40 MG INJ IV SCH (05:15)
[2016-07-16 07:01] LABS: POTASSIUM 3.2 mmol/L (3.5-5.1)
[2016-07-16 07:03] LABS: CREATININE 0.81 mg/dl (0.61-1.24)
[2016-07-16 07:04] LABS: CALCIUM 8.7 mg/dl (8.4-10.2)
[2016-07-16 08:26] VITALS: BP 155/85; RESP 17
[2016-07-16] MEDS: DEXTROSE 5%-0.9% NACL 1,000 ML IV SCH (11:13)
[2016-07-16] MEDS ORDERED: BISACODYL (EC) 5 MG TAB PO ONE (12:00)
[2016-07-16] MEDS ORDERED: PEG/ELECTROLYTES 4L BTL PO ONE ×2 (12:00→16:00)
[2016-07-16] MEDS ORDERED: PHYTONADIONE 10 MG/ML INJ SC STA (16:38)
--- NOTE | 2016-07-16 16:41 | CONS ---
Date/Time of Note Date/Time of Note DATE: 07/16/16 TIME: 16:40 Assessment/Plan Assessment/Plan Additional Assessment/Plan IMPRESSION: 1. Metastatic liver disease. 2. Retroperitoneal and mediastinal lymphadenopathy. 3. High CEA. 4. History of black stool. 5. Constipation. 6. Strong family history of colon cancer. 7. Anorexia and weight loss. PLAN: Correct the coagulopathy. The patient will be scheduled for EGD and colonoscopy on Sunday. Discussed with the patient and has agreed. vitamin k now Consultation Date/Type/Reason Admit Date/Time Jul 13, 2016 at 13:20 Initial Consult Date 07/14/16 Type of Consultation: Oncology Referring Provider: MK VALLE MD 24 HR Interval Summary Constitutional: no complaints Exam/Review of Systems Vital Signs Vitals Vital Signs Date Time Temp Pulse Resp B/P Pulse Ox O2 Delivery O2 Flow Rate FiO2 07/16/16 08:26 98.6 101 17 155/85 95 07/13/16 15:48 Room Air Intake and Output 07/15/16 07/15/16 07/16/16 15:00 23:00 07:00 Intake Total 700 ml 1060.0 ml 1450 ml Balance 700 ml 1060.0 ml 1450 ml Exam Constitutional: alert, oriented, well developed Psych: nl mood/affect, no complaints Head: atraumatic, normocephalic Eyes: EOMI, PERRL, nl conjunctiva, nl lids, nl sclera ENMT: nl external ears & nose, nl lips & teeth, nl nasal mucosa & septum Neck: non-tender, supple Respiratory: clear to auscultation, normal air movement Cardiovascular: nl pulses, regular rate and rhythm Gastrointestinal: nl liver, spleen, non-tender, soft Musculoskeletal: nl extremities to inspection, nl gait and stance Extremities: normal pulses Neurological: COAL TOWER OPERATOR II-XII intact, nl mental status, nl speech, nl strength Skin: nl turgor, No rash or lesions Lymph: nl lymph nodes Results Result Diagram: 07/15/16 0620 07/16/16 0545 Results 24 hrs Laboratory Tests Test 07/16/16 05:45 Sodium Level 137 Potassium Level 3.2 L Chloride Level 106 Carbon Dioxide Level 22 Anion Gap 12 Blood Urea Nitrogen 14 Creatinine 0.81 Glucose Level 110 Calcium Level 8.7 Medications Medications Current Medications Dextrose/Sodium Chloride (D5-NS) 1,000 ml @ 75 mls/hr [id number] IV Last administered on 07/16/16 11:13; Admin Dose 75 MLS/HR; Start 07/13/16 at 16:30 Pantoprazole (Protonix Iv) 40 mg DAILY@06 IV Last administered on 07/16/16 05: 15; Admin Dose 40 MG; Start 07/14/16 at 06:00 Acetaminophen (Tylenol Tab) 650 mg Q6H PRN PO PAIN AND OR ELEVATED TEMP; Start 07/13/16 at 16:30 Ondansetron HCl (Zofran Inj) 4 mg Q4H PRN IV NAUSEA AND/OR VOMITING Last administered on 07/14/16 06:15; Admin Dose 4 MG; Start 07/13/16 at 16:30 Morphine Sulfate (morphine) 2 mg Q4H PRN IV PAIN LEVEL 7-10 Last administered on 07/14/16 14:30; Admin Dose 2 MG; Start 07/13/16 at 16:30 Bisacodyl (Dulcolax Supp) 10 mg DAILY PRN [place] CONSTIPATION Last administered on 07/15/16 15:42; Admin Dose 10 MG; Start 07/15/16 at 15:00 ZACH ARAIZA MD Jul 16, 2016 16:41
--- NOTE | 2016-07-16 17:45 | PN ---
Date/Time of Note Date/Time of Note DATE: 07/16/16 TIME: 17:44 Assessment/Plan VTE Prophylaxis VTE Prophylaxis Intervention: other Lines/Catheters IV Catheter Type (from Nrs): Peripheral IV Urinary Cath still in place: No Assessment/Plan Chief Complaint/Hosp Course MPRESSION: 1. Metastatic cancer, possible gastrointestinal. 2. Hyponatremia. 3. Anemia. 4. Metabolic acidosis. 5. Leukocytosis. 6 hypokalemia plan kcl per gi Problems: Subjective 24 Hr Interval Summary Gastrointestinal: no complaints Genitourinary: no complaints Exam/Review of Systems Vital Signs Vitals Vital Signs Date Time Temp Pulse Resp B/P Pulse Ox O2 Delivery O2 Flow Rate FiO2 07/16/16 08:26 98.6 101 17 155/85 95 07/13/16 15:48 Room Air Intake and Output 07/15/16 07/15/16 07/16/16 15:00 23:00 07:00 Intake Total 700 ml 1060.0 ml 1450 ml Balance 700 ml 1060.0 ml 1450 ml Exam Neck: supple Respiratory: clear to auscultation Cardiovascular: regular rate and rhythm Gastrointestinal: bowel sounds (+), soft Extremities: normal pulses Results Result Diagram: 07/15/16 0620 07/16/16 0545 Results 24 hrs Laboratory Tests Test 07/16/16 05:45 Sodium Level 137 Potassium Level 3.2 L Chloride Level 106 Carbon Dioxide Level 22 Anion Gap 12 Blood Urea Nitrogen 14 Creatinine 0.81 Glucose Level 110 Calcium Level 8.7 Medications Medications Current Medications Dextrose/Sodium Chloride (D5-NS) 1,000 ml @ 75 mls/hr [id number] IV Last administered on 07/16/16 11:13; Admin Dose 75 MLS/HR; Start 07/13/16 at 16:30 Pantoprazole (Protonix Iv) 40 mg DAILY@06 IV Last administered on 07/16/16 05: 15; Admin Dose 40 MG; Start 07/14/16 at 06:00 Acetaminophen (Tylenol Tab) 650 mg Q6H PRN PO PAIN AND OR ELEVATED TEMP; Start 07/13/16 at 16:30 Ondansetron HCl (Zofran Inj) 4 mg Q4H PRN IV NAUSEA AND/OR VOMITING Last administered on 07/14/16 06:15; Admin Dose 4 MG; Start 07/13/16 at 16:30 Morphine Sulfate (morphine) 2 mg Q4H PRN IV PAIN LEVEL 7-10 Last administered on 07/14/16 14:30; Admin Dose 2 MG; Start 07/13/16 at 16:30 Bisacodyl (Dulcolax Supp) 10 mg DAILY PRN [place] CONSTIPATION Last administered on 07/15/16 15:42; Admin Dose 10 MG; Start 07/15/16 at 15:00 MK VALLE MD Jul 16, 2016 17:44
[2016-07-16 20:04] VITALS: BP 165/95; RESP 19
[2016-07-16 20:45] VITALS: BP 157/77; PULSE 93
[2016-07-16] MEDS: POTASSIUM CHLORIDE 250 ML IVPB SCH (21:38)
[2016-07-16] MEDS ORDERED: PHYTONADIONE 5 MG in DEXTROSE 5% 50 ML IVPB ONE (22:00)
[2016-07-17] VITALS (16 sets, daily range): BP systolic 112–161; BP diastolic 72–91; PULSE 80–92; RESP 18–25
[2016-07-17] MEDS: DEXTROSE 5%-0.9% NACL 1,000 ML IV SCH ×3 (00:32→21:42)
[2016-07-17] MEDS: POTASSIUM CHLORIDE 250 ML IVPB SCH (01:35)
[2016-07-17] MEDS: PANTOPRAZOLE 40 MG INJ IV SCH (05:22)
[2016-07-17 06:12] LABS: POTASSIUM 3.6 mmol/L (3.5-5.1)
[2016-07-17 06:14] LABS: CREATININE 0.6 mg/dl (0.61-1.24)
[2016-07-17 06:15] LABS: CALCIUM 8.6 mg/dl (8.4-10.2)
[2016-07-17 06:28] LABS: INR 1.22; PROTIME 15.5 Sec (12.2-14.2); PT RATIO 1.2
--- NOTE | 2016-07-17 12:24 | CONS ---
Date/Time of Note Date/Time of Note DATE: 07/17/16 TIME: 12:21 Assessment/Plan Assessment/Plan Chief Complaint/Hosp Course Mr. Munguia is a 61-year-old male with innumerable hepatic lesions seen on CT at [facility] and [place] although the latter was without contrast presumably due to renal insufficiency, likely metastatic disease versus less likely primary liver cancer. CT CAP 07/14/16 1. A left hilar mass measuring up to 2.4 cm in height by 2.7 cm transverse by 2.6 cm AP is identified to may be the result of the lung cancer. 2. There enlarged superior mediastinal and mediastinal lymph nodes. 3. Atherosclerotic vascular disease involving the aortic arch and coronary arteries. 4. Trace right pleural effusion. 5. Multiple hepatic metastases. 6. Extensive periportal, mesenteric, retroperitoneal metastatic lymphadenopathy. Additional metastatic retrocrural, pelvic sidewall and inguinal lymph nodes are identified as described. Carcinomatosis of the mesentery with ascites. 7. Bilateral benign hepatic cysts. 8. Bilateral adrenal masses as described. - Continue hydration, PPI, pain medications. - f/u blood and urine cultures to r/o infection given weakness, dehydration, failure to thrive and leukocytosis - Appreciate GI evaluation for endoscopy to evaluate for a GI primary. Plan for EGD/[place] today. - CEA elevated at 278, CA 19-9 and AFP within normal limits. Hepatitis panel negative. - Will continue to follow. If path obtained from endoscopy and patient's functional status has been optimized, will likely give FOLFOX chemotherapy vs. single agent xeloda if patient desires treatment. Problems: Consultation Date/Type/Reason Admit Date/Time Jul 13, 2016 at 13:20 Initial Consult Date 07/14/16 Type of Consultation: Oncology Referring Provider: MK VALLE MD 24 HR Interval Summary Free Text/Dictation Patient denies complaints today. He continues to be weak and has not eaten much or gotten out of bed. Plan for EGD/colonoscopy today, he states that he finished the prep. Exam/Review of Systems Vital Signs Vitals Vital Signs Date Time Temp Pulse Resp B/P Pulse Ox O2 Delivery O2 Flow Rate FiO2 07/17/16 07:45 98.7 87 20 139/76 94 07/13/16 15:48 Room Air Intake and Output 07/16/16 07/16/16 07/17/16 15:00 23:00 07:00 Intake Total 400 ml 2950 ml 3746.5 ml Balance 400 ml 2950 ml 3746.5 ml Exam Constitutional: alert, distress, frail Psych: anxiety, depression Head: normocephalic Eyes: nl conjunctiva ENMT: nl external ears & nose Neck: non-tender, supple Respiratory: clear to auscultation Cardiovascular: regular rate and rhythm Gastrointestinal: distended, firm Musculoskeletal: nl extremities to inspection Neurological: TURPENTINE FARMER II-XII intact Results Result Diagram: 07/15/16 0620 07/17/16 0550 Results 24 hrs Laboratory Tests Test 07/17/16 05:50 Prothrombin Time 15.5 #H Prothrombin Time Ratio 1.2 INR International Normalized Ratio 1.22 Sodium Level 142 Potassium Level 3.6 Chloride Level 109 Carbon Dioxide Level 25 Anion Gap 12 Blood Urea Nitrogen 8 Creatinine 0.60 L Glucose Level 101 Calcium Level 8.6 Medications Medications Current Medications Dextrose/Sodium Chloride (D5-NS) 1,000 ml @ 75 mls/hr [id number] IV Last administered on 07/17/16 00:32; Admin Dose 75 MLS/HR; Start 07/13/16 at 16:30 Pantoprazole (Protonix Iv) 40 mg DAILY@06 IV Last administered on 07/17/16 05: 22; Admin Dose 40 MG; Start 07/14/16 at 06:00 Acetaminophen (Tylenol Tab) 650 mg Q6H PRN PO PAIN AND OR ELEVATED TEMP; Start 07/13/16 at 16:30 Ondansetron HCl (Zofran Inj) 4 mg Q4H PRN IV NAUSEA AND/OR VOMITING Last administered on 07/14/16 06:15; Admin Dose 4 MG; Start 07/13/16 at 16:30 Morphine Sulfate (morphine) 2 mg Q4H PRN IV PAIN LEVEL 7-10 Last administered on 07/14/16 14:30; Admin Dose 2 MG; Start 07/13/16 at 16:30 Bisacodyl (Dulcolax Supp) 10 mg DAILY PRN [place] CONSTIPATION Last administered on 07/15/16 15:42; Admin Dose 10 MG; Start 07/15/16 at 15:00 SRI RODRIGUEZ MD Jul 17, 2016 12:23
[2016-07-17] MEDS ORDERED: PROPOFOL 40 ML ONE (14:17)
--- NOTE | 2016-07-17 19:11 | PN ---
Date/Time of Note Date/Time of Note DATE: 07/17/16 TIME: 19:10 Assessment/Plan VTE Prophylaxis VTE Prophylaxis Intervention: other Lines/Catheters IV Catheter Type (from Nrsg): Peripheral IV Urinary Cath still in place: No Assessment/Plan Chief Complaint/Hosp Course MPRESSION: 1. Metastatic cancer, possible gastrointestinal. 2. Hyponatremia.better 3. Anemia. 4. Metabolic acidosis.better 5. Leukocytosis. 6 hypokalemia better plan liver biopsy per gi Problems: Subjective 24 Hr Interval Summary Subjective hx not possible: other (need liver biopsy) Exam/Review of Systems Vital Signs Vitals Vital Signs Date Time Temp Pulse Resp B/P Pulse Ox O2 Delivery O2 Flow Rate FiO2 07/17/16 17:05 97.9 85 20 144/77 95 Room Air 07/17/16 15:38 2.0 Intake and Output 07/16/16 07/16/16 07/17/16 15:00 23:00 07:00 Intake Total 400 ml 2950 ml 3746.5 ml Balance 400 ml 2950 ml 3746.5 ml Exam Neck: supple Respiratory: clear to auscultation Cardiovascular: regular rate and rhythm Gastrointestinal: soft Extremities: normal pulses Results Result Diagram: 07/15/16 0620 07/17/16 0550 Results 24 hrs Laboratory Tests Test 07/17/16 05:50 Prothrombin Time 15.5 #H Prothrombin Time Ratio 1.2 INR International Normalized Ratio 1.22 Sodium Level 142 Potassium Level 3.6 Chloride Level 109 Carbon Dioxide Level 25 Anion Gap 12 Blood Urea Nitrogen 8 Creatinine 0.60 L Glucose Level 101 Calcium Level 8.6 Medications Medications Current Medications Dextrose/Sodium Chloride (D5-NS) 1,000 ml @ 75 mls/hr [id number] IV Last administered on 07/17/16 00:32; Admin Dose 75 MLS/HR; Start 07/13/16 at 16:30 Acetaminophen (Tylenol Tab) 650 mg Q6H PRN PO PAIN AND OR ELEVATED TEMP; Start 07/13/16 at 16:30 Ondansetron HCl (Zofran Inj) 4 mg Q4H PRN IV NAUSEA AND/OR VOMITING Last administered on 07/14/16 06:15; Admin Dose 4 MG; Start 07/13/16 at 16:30 Morphine Sulfate (morphine) 2 mg Q4H PRN IV PAIN LEVEL 7-10 Last administered on 07/14/16 14:30; Admin Dose 2 MG; Start 07/13/16 at 16:30 Bisacodyl (Dulcolax Supp) 10 mg DAILY PRN [place] CONSTIPATION Last administered on 07/15/16 15:42; Admin Dose 10 MG; Start 07/15/16 at 15:00 Megestrol Acetate (Megace) 80 mg DAILY PO ; Start 07/18/16 at 09:00 Pantoprazole (Protonix Tab) 40 mg DAILY@06 PO ; Start 07/18/16 at 06:00 MK VALLE MD Jul 17, 2016 19:11
[2016-07-18] MEDS: PANTOPRAZOLE (EC) 40 MG TAB PO SCH (05:28)
--- NOTE | 2016-07-18 06:01 | GILP ---
DATE OF PROCEDURE: PROCEDURES PERFORMED: 1. Colonoscopy with polypectomy. 2. Esophagogastroduodenoscopy with biopsy. INDICATION: A 61-year-old male undergoing this procedure for metastatic liver disease. His CEA was greater than 230. The purpose is to evaluate the upper GI tract and lower GI tract and find out th e cause of his metastatic lesion. Besides patient gives a history of melenic stool and severe const ipation. INFORMED CONSENT: The risk of the procedure, related and unrelated complications, anesthetic risks, and alternatives were discussed and informed consent was obtained. DESCRIPTION OF PROCEDURE: The patient was brought to the GI lab, sedated by the anesthesiologist. After obtaining sedation, scope was passed with much ease into the esophagus. This was grossly with in normal limits except for the esophagitis. Stomach mucosa revealed gastritis and definitely had a n endoluminal compression created by the metastatic lesion of the liver. The subendothelial fullnes s in the fundal area appeared to be secondary to extra-luminal lesion, mostly metastasis. It was andrade rd in consistency. Stomach mucosa revealed erosive gastritis was moderate to severe inflammation in the antrum. Multiple biopsies were obtained for H. pylori infection. Duodenum, first and second p art were within normal limits. IMPRESSION: 1. Sotomayor gastritis, marked in the antrum. 2. Intraluminal lesion created by the metastatic liver disease. 3. Esophagitis. 4. Normal duodenum. PLAN: Review histopathology. Continue PPI. COLONOSCOPY REPORT: The patient was turned around, scope was passed with much ease into rectum, adv anced through sigmoid, descending, transverse colon all the way into cecum. Appendiceal orifice was identified entering to terminal ileum which was normal. While coming out, mucosa was thoroughly inspected. The rest of the colon was normal. There was a l arge 2.5 cm polyp. A small pedicle was identified in the rectum 7 to 8 cm from the anal verge, succe ssfully removed via hot snare technique. Polyp was retrieved and sent for analysis. Large hemorrho ids identified. IMPRESSION: 1. Large hemorrhoids. 2. A 2.5 cm polyp with a small pedicle successfully removed by hot snare polypectomy. Polyp retrie modesta and sent for analysis. 3. Negative all the way into cecum. 4. Negative terminal ileum. 5. Clarity and cleanliness were good. PLAN: This finding cannot explain the metastasis in the liver. Patient definitely needs either cricket er biopsy or lymph node biopsy to clinch the primary diagnosis. Dictated By: ZACH BROOKS/PENNY Conf#: [id number] DID#: [id number]
[2016-07-18 08:06] VITALS: BP 144/75; RESP 18
[2016-07-18 10:07] LABS: INR 1.09; PROTIME 14.1 Sec (12.2-14.2); PT RATIO 1.1
[2016-07-18 10:08] LABS: PARTIAL THROMBOPLASTIN TIME 30.1 Sec (25.0-35.0)
[2016-07-18] MEDS: morphine 2 MG INJ IV PRN ×2 (10:10→15:08)
[2016-07-18] MEDS: MEGESTROL 40 MG TAB PO SCH (10:12)
[2016-07-18] MEDS: DEXTROSE 5%-0.9% NACL 1,000 ML IV SCH (13:49)
--- NOTE | 2016-07-18 14:10 | RADRPT ---
PROCEDURE: Ultrasound guided right inguinal lymph node biopsy. CLINICAL INDICATION: Right inguinal lymphadenopathy. Multiple liver masses. Abdominal lymphadeno bety. Left hilar and mediastinal lymphadenopathy. TECHNIQUE: Prior to the procedure, informed consent was obtained. Risks including bleeding and in fection were explained to the patient. The patientunderstood and was willing to proceed. A procedu ral pause was performed. The patient's name, date of , and procedure to be performed were veri fied. Using local anesthetic, sterile technique and ultrasound guidance, a 20-gauge automated core biopsy needle followed by an 18-gauge automated core biopsy was used to biopsy of the lymphadenopathy in th e right inguinal region. Multiple passes were made. Adequate tissue was obtained according to the pathologist present during the biopsy. The patient tolerated the procedure well. COMPARISON: CT scan of the abdomen and pelvis dated 07/14/2016. FINDINGS: Images demonstrate the right inguinal lymphadenopathy and subsequent images demonstrate needle withi n the enlarged right inguinal lymph node. IMPRESSION: 1. Satisfactory ultrasound-guided right inguinal lymphadenopathy biopsy. RPTAT: QQ .David Verdin MD, MD Date Time Electronically viewed and signed by .David Verdin MD, MD on 07/18/2016 14:09 .R/
--- NOTE | 2016-07-18 14:47 | CONS ---
Date/Time of Note Date/Time of Note DATE: 07/18/16 TIME: 14:42 Assessment/Plan Assessment/Plan Chief Complaint/Hosp Course Mr. Munguia is a 61-year-old male with innumerable hepatic lesions seen on CT at [facility] and [place] although the latter was without contrast presumably due to renal insufficiency, likely metastatic disease versus less likely primary liver cancer. CT CAP 07/14/16 1. A left hilar mass measuring up to 2.4 cm in height by 2.7 cm transverse by 2.6 cm AP is identified to may be the result of the lung cancer. 2. There enlarged superior mediastinal and mediastinal lymph nodes. 3. Atherosclerotic vascular disease involving the aortic arch and coronary arteries. 4. Trace right pleural effusion. 5. Multiple hepatic metastases. 6. Extensive periportal, mesenteric, retroperitoneal metastatic lymphadenopathy. Additional metastatic retrocrural, pelvic sidewall and inguinal lymph nodes are identified as described. Carcinomatosis of the mesentery with ascites. 7. Bilateral benign hepatic cysts. 8. Bilateral adrenal masses as described. - Continue hydration, PPI, pain medications. - f/u blood and urine cultures to r/o infection given weakness, dehydration, failure to thrive and leukocytosis - s/p EGD 07/17/16 that demonstrated gastritis, esophagitis, intraluminal lesion created by metastatic liver disease, large hemorrhoids, 2.5 cm polyp s/p snare polypectomy. This finding cannot explain the metastasis in the liver. Patient definitely needs either liver biopsy or lymph node biopsy to clinch the primary diagnosis. - s/p satisfactory ultrasound-guided right inguinal lymphadenopathy biopsy today . f/u results - CEA elevated at 278, CA 19-9 and AFP within normal limits. Hepatitis panel negative. - Will continue to follow. If path obtained from endoscopy and patient's functional status has been optimized, will likely give FOLFOX chemotherapy vs. single agent xeloda if patient desires treatment. Problems: Consultation Date/Type/Reason Admit Date/Time Jul 13, 2016 at 13:20 Initial Consult Date 07/14/16 Type of Consultation: Oncology Referring Provider: MK VALLE MD Exam/Review of Systems Vital Signs Vitals Vital Signs Date Time Temp Pulse Resp B/P Pulse Ox O2 Delivery O2 Flow Rate FiO2 07/18/16 08:06 98.2 91 18 144/75 92 07/17/16 17:05 Room Air 07/17/16 15:38 2.0 Intake and Output 07/17/16 07/17/16 07/18/16 15:00 23:00 07:00 Intake Total 400 ml 300 ml 700 ml Balance 400 ml 300 ml 700 ml Exam Constitutional: alert, distress, frail Psych: anxiety, depression Head: normocephalic Eyes: nl conjunctiva ENMT: nl external ears & nose Neck: non-tender, supple Respiratory: clear to auscultation Cardiovascular: regular rate and rhythm Gastrointestinal: distended, firm Musculoskeletal: nl extremities to inspection Neurological: AUTO DESIGN DETAILER II-XII intact Results Result Diagram: 07/15/16 0620 07/17/16 0550 Results 24 hrs Laboratory Tests Test 07/18/16 09:24 Prothrombin Time 14.1 Prothrombin Time Ratio 1.1 INR International Normalized Ratio 1.09 Activated Partial Thromboplast Time 30.1 Medications Medications Current Medications Dextrose/Sodium Chloride (D5-NS) 1,000 ml @ 75 mls/hr [id number] IV Last administered on 07/18/16 13:49; Admin Dose 75 MLS/HR; Start 07/13/16 at 16:30 Acetaminophen (Tylenol Tab) 650 mg Q6H PRN PO PAIN AND OR ELEVATED TEMP; Start 07/13/16 at 16:30 Ondansetron HCl (Zofran Inj) 4 mg Q4H PRN IV NAUSEA AND/OR VOMITING Last administered on 07/14/16 06:15; Admin Dose 4 MG; Start 07/13/16 at 16:30 Morphine Sulfate (morphine) 2 mg Q4H PRN IV PAIN LEVEL 7-10 Last administered on 07/18/16 10:10; Admin Dose 2 MG; Start 07/13/16 at 16:30 Bisacodyl (Dulcolax Supp) 10 mg DAILY PRN [place] CONSTIPATION Last administered on 07/15/16 15:42; Admin Dose 10 MG; Start 07/15/16 at 15:00 Megestrol Acetate (Megace) 80 mg DAILY PO Last administered on 07/18/16 10:12; Admin Dose 80 MG; Start 07/18/16 at 09:00 Pantoprazole (Protonix Tab) 40 mg DAILY@06 PO Last administered on 07/18/16 05: 28; Admin Dose 40 MG; Start 07/18/16 at 06:00 TOSRI MD Jul 18, 2016 14:47
--- NOTE | 2016-07-18 18:56 | CONS ---
Date/Time of Note Date/Time of Note DATE: 07/18/16 TIME: 18:55 Assessment/Plan Assessment/Plan Additional Assessment/Plan IMPRESSION: 1. Metastatic liver disease. 2. Retroperitoneal and mediastinal lymphadenopathy. 3. High CEA. 4. History of black stool. 5. Constipation. 6. Strong family history of colon cancer. 7. Anorexia and weight loss. Plan Discussed with Dr. Verdin, will proceed with left inguinal lymph node biopsy to clinch the diagnosis Consultation Date/Type/Reason Admit Date/Time Jul 13, 2016 at 13:20 Initial Consult Date 07/14/16 Type of Consultation: Oncology Referring Provider: MK VALLE MD 24 HR Interval Summary Free Text/Dictation Patient denies of abdominal pain no nausea no vomiting no GI bleeding. Constitutional: no complaints Exam/Review of Systems Vital Signs Vitals Vital Signs Date Time Temp Pulse Resp B/P Pulse Ox O2 Delivery O2 Flow Rate FiO2 07/18/16 08:06 98.2 91 18 144/75 92 07/17/16 17:05 Room Air 07/17/16 15:38 2.0 Intake and Output 07/17/16 07/17/16 07/18/16 15:00 23:00 07:00 Intake Total 400 ml 300 ml 700 ml Balance 400 ml 300 ml 700 ml Exam Constitutional: alert, oriented, well developed Psych: nl mood/affect, no complaints Head: atraumatic, normocephalic Eyes: EOMI, PERRL, nl conjunctiva, nl lids, nl sclera ENMT: nl external ears & nose, nl lips & teeth, nl nasal mucosa & septum Neck: non-tender, supple Respiratory: clear to auscultation, normal air movement Cardiovascular: nl pulses, regular rate and rhythm Gastrointestinal: nl liver, spleen, non-tender, soft Musculoskeletal: nl extremities to inspection, nl gait and stance Extremities: normal pulses Neurological: JUICE PACKAGING MACHINES SETTER II-XII intact, nl mental status, nl speech, nl strength Skin: nl turgor, No rash or lesions Lymph: nl lymph nodes Results Result Diagram: 07/15/16 0620 07/17/16 0550 Results 24 hrs Laboratory Tests Test 07/18/16 09:24 Prothrombin Time 14.1 Prothrombin Time Ratio 1.1 INR International Normalized Ratio 1.09 Activated Partial Thromboplast Time 30.1 Medications Medications Current Medications Dextrose/Sodium Chloride (D5-NS) 1,000 ml @ 75 mls/hr [id number] IV Last administered on 07/18/16 13:49; Admin Dose 75 MLS/HR; Start 07/13/16 at 16:30 Acetaminophen (Tylenol Tab) 650 mg Q6H PRN PO PAIN AND OR ELEVATED TEMP; Start 07/13/16 at 16:30 Ondansetron HCl (Zofran Inj) 4 mg Q4H PRN IV NAUSEA AND/OR VOMITING Last administered on 07/14/16 06:15; Admin Dose 4 MG; Start 07/13/16 at 16:30 Morphine Sulfate (morphine) 2 mg Q4H PRN IV PAIN LEVEL 7-10 Last administered on 07/18/16 15:08; Admin Dose 2 MG; Start 07/13/16 at 16:30 Bisacodyl (Dulcolax Supp) 10 mg DAILY PRN [place] CONSTIPATION Last administered on 07/15/16 15:42; Admin Dose 10 MG; Start 07/15/16 at 15:00 Megestrol Acetate (Megace) 80 mg DAILY PO Last administered on 07/18/16 10:12; Admin Dose 80 MG; Start 07/18/16 at 09:00 Pantoprazole (Protonix Tab) 40 mg DAILY@06 PO Last administered on 07/18/16 05: 28; Admin Dose 40 MG; Start 07/18/16 at 06:00 ZACH ARAIZA MD Jul 18, 2016 18:56
[2016-07-18 21:09] VITALS: BP 156/96; RESP 18
--- NOTE | 2016-07-18 21:34 | PN ---
Date/Time of Note Date/Time of Note DATE: 07/18/16 TIME: 21:34 Assessment/Plan VTE Prophylaxis VTE Prophylaxis Intervention: other Lines/Catheters IV Catheter Type (from Nrs): Peripheral IV Urinary Cath still in place: No Assessment/Plan Chief Complaint/Hosp Course MPRESSION: 1. Metastatic cancer, possible gastrointestinal. 2. Hyponatremia.better 3. Anemia. 4. Metabolic acidosis.better 5. Leukocytosis. 6 hypokalemia better plan liver biopsy per gi Problems: Subjective 24 Hr Interval Summary Respiratory: no complaints Exam/Review of Systems Vital Signs Vitals Vital Signs Date Time Temp Pulse Resp B/P Pulse Ox O2 Delivery O2 Flow Rate FiO2 07/18/16 21:09 98.0 95 18 156/96 95 07/17/16 17:05 Room Air 07/17/16 15:38 2.0 Intake and Output 07/17/16 07/17/16 07/18/16 15:00 23:00 07:00 Intake Total 400 ml 300 ml 700 ml Balance 400 ml 300 ml 700 ml Exam Respiratory: clear to auscultation Cardiovascular: regular rate and rhythm Gastrointestinal: bowel sounds (+) Results Result Diagram: 07/15/16 0620 07/17/16 0550 Results 24 hrs Laboratory Tests Test 07/18/16 09:24 Prothrombin Time 14.1 Prothrombin Time Ratio 1.1 INR International Normalized Ratio 1.09 Activated Partial Thromboplast Time 30.1 Medications Medications Current Medications Dextrose/Sodium Chloride (D5-NS) 1,000 ml @ 75 mls/hr [id number] IV Last administered on 07/18/16 13:49; Admin Dose 75 MLS/HR; Start 07/13/16 at 16:30 Acetaminophen (Tylenol Tab) 650 mg Q6H PRN PO PAIN AND OR ELEVATED TEMP; Start 07/13/16 at 16:30 Ondansetron HCl (Zofran Inj) 4 mg Q4H PRN IV NAUSEA AND/OR VOMITING Last administered on 07/14/16 06:15; Admin Dose 4 MG; Start 07/13/16 at 16:30 Morphine Sulfate (morphine) 2 mg Q4H PRN IV PAIN LEVEL 7-10 Last administered on 07/18/16 15:08; Admin Dose 2 MG; Start 07/13/16 at 16:30 Bisacodyl (Dulcolax Supp) 10 mg DAILY PRN [place] CONSTIPATION Last administered on 07/15/16 15:42; Admin Dose 10 MG; Start 07/15/16 at 15:00 Megestrol Acetate (Megace) 80 mg DAILY PO Last administered on 07/18/16 10:12; Admin Dose 80 MG; Start 07/18/16 at 09:00 Pantoprazole (Protonix Tab) 40 mg DAILY@06 PO Last administered on 07/18/16 05: 28; Admin Dose 40 MG; Start 07/18/16 at 06:00 MK VALLE MD Jul 18, 2016 21:34
[2016-07-19] MEDS: PANTOPRAZOLE (EC) 40 MG TAB PO SCH (05:32)
[2016-07-19] MEDS: DEXTROSE 5%-0.9% NACL 1,000 ML IV SCH ×2 (05:33→19:37)
[2016-07-19] MEDS ORDERED: hydrALAzine 20 MG INJ IV PRN (06:30)
[2016-07-19 08:02] VITALS: BP 138/72; RESP 20
[2016-07-19] MEDS: MEGESTROL 40 MG TAB PO SCH (09:00)
--- NOTE | 2016-07-19 10:18 | CONS ---
Date/Time of Note Date/Time of Note DATE: 07/19/16 TIME: 10:17 Assessment/Plan Assessment/Plan Chief Complaint/Hosp Course Mr. Munguia is a 61-year-old male with innumerable hepatic lesions seen on CT at [facility] and [place] although the latter was without contrast presumably due to renal insufficiency, likely metastatic disease. CT CAP 07/14/16 1. A left hilar mass measuring up to 2.4 cm in height by 2.7 cm transverse by 2.6 cm AP is identified to may be the result of the lung cancer. 2. There enlarged superior mediastinal and mediastinal lymph nodes. 3. Atherosclerotic vascular disease involving the aortic arch and coronary arteries. 4. Trace right pleural effusion. 5. Multiple hepatic metastases. 6. Extensive periportal, mesenteric, retroperitoneal metastatic lymphadenopathy. Additional metastatic retrocrural, pelvic sidewall and inguinal lymph nodes are identified as described. Carcinomatosis of the mesentery with ascites. 7. Bilateral benign hepatic cysts. 8. Bilateral adrenal masses as described. - Continue hydration, PPI, pain medications. - f/u blood and urine cultures to r/o infection given weakness, dehydration, failure to thrive and leukocytosis - s/p EGD 07/17/16 that demonstrated gastritis, esophagitis, intraluminal lesion created by metastatic liver disease, large hemorrhoids, 2.5 cm polyp s/p snare polypectomy. Path of gastric and rectal polyp biopsy showed no high grade dysplasia or malignancy. This finding cannot explain the metastasis in the liver. Patient definitely needs either liver biopsy or lymph node biopsy to clinch the primary diagnosis. - patient had small amount of bright red blood from rectum though EGD/ colonoscopy had been largely unrevealing. Appreciate GI recs. - s/p satisfactory ultrasound-guided right inguinal lymphadenopathy biopsy today . Prelim results show metastatic poorly differentiated carcinoma, pending stains to determine primary. Possibly lung primary in the setting of left hilar mass and mediastinal LN - CEA elevated at 278, CA 19-9 and AFP within normal limits. Hepatitis panel negative. - Will continue to follow. Treatment will be determined based on path results. Problems: Consultation Date/Type/Reason Admit Date/Time Jul 13, 2016 at 13:20 Initial Consult Date 07/14/16 Type of Consultation: Oncology Referring Provider: MK VALLE MD 24 HR Interval Summary Free Text/Dictation Patient continues to have weakness but is able to ambulate to the bathroom. He had a small amount of blood on toilet paper from his rectum. Exam/Review of Systems Vital Signs Vitals Vital Signs Date Time Temp Pulse Resp B/P Pulse Ox O2 Delivery O2 Flow Rate FiO2 07/19/16 08:02 98.8 80 20 138/72 96 07/17/16 17:05 Room Air 07/17/16 15:38 2.0 Intake and Output 07/18/16 07/18/16 07/19/16 14:59 22:59 06:59 Intake Total 600 ml 950 ml 750 ml Balance 600 ml 950 ml 750 ml Exam Constitutional: alert, distress, frail Psych: anxiety, depression Head: normocephalic Eyes: nl conjunctiva ENMT: nl external ears & nose Neck: non-tender, supple Respiratory: clear to auscultation Cardiovascular: regular rate and rhythm Gastrointestinal: distended, firm Musculoskeletal: nl extremities to inspection Neurological: INTAKE NURSE II-XII intact Results Result Diagram: 07/15/16 0620 07/17/16 0550 Medications Medications Current Medications Dextrose/Sodium Chloride (D5-NS) 1,000 ml @ 75 mls/hr [id number] IV Last administered on 07/19/16 05:33; Admin Dose 75 MLS/HR; Start 07/13/16 at 16:30 Acetaminophen (Tylenol Tab) 650 mg Q6H PRN PO PAIN AND OR ELEVATED TEMP; Start 07/13/16 at 16:30 Ondansetron HCl (Zofran Inj) 4 mg Q4H PRN IV NAUSEA AND/OR VOMITING Last administered on 07/14/16 06:15; Admin Dose 4 MG; Start 07/13/16 at 16:30 Morphine Sulfate (morphine) 2 mg Q4H PRN IV PAIN LEVEL 7-10 Last administered on 07/18/16 15:08; Admin Dose 2 MG; Start 07/13/16 at 16:30 Bisacodyl (Dulcolax Supp) 10 mg DAILY PRN [place] CONSTIPATION Last administered on 07/15/16 15:42; Admin Dose 10 MG; Start 07/15/16 at 15:00 Megestrol Acetate (Megace) 80 mg DAILY PO Last administered on 07/19/16 09:00; Admin Dose 80 MG; Start 07/18/16 at 09:00 Pantoprazole (Protonix Iv) 40 mg DAILY@06 IV ; Start 07/20/16 at 06:00 Hydralazine HCl (Apresoline) 10 mg Q6H PRN IV ELEVATED SYSTOLIC BP; Start at 06:30 SRI RODRIGUEZ MD Jul 19, 2016 10:18
[2016-07-19 14:10] VITALS: BP 161/94; PULSE 120; RESP 24
--- NOTE | 2016-07-19 19:08 | CONS ---
Date/Time of Note Date/Time of Note DATE: 07/19/16 TIME: 19:07 Assessment/Plan Assessment/Plan Additional Assessment/Plan IMPRESSION: 1. Metastatic liver disease. 2. Retroperitoneal and mediastinal lymphadenopathy. 3. High CEA. 4. History of black stool. 5. Constipation. 6. Strong family history of colon cancer. 7. Anorexia and weight loss. 8. Status post left inguinal node biopsy Plan Preliminary report adenocarcinoma, most probably coming from the lung. Awaiting for the final report Consultation Date/Type/Reason Admit Date/Time Jul 13, 2016 at 13:20 Initial Consult Date 07/14/16 Type of Consultation: Oncology Referring Provider: MK VALLE MD 24 HR Interval Summary Constitutional: no complaints Exam/Review of Systems Vital Signs Vitals Vital Signs Date Time Temp Pulse Resp B/P Pulse Ox O2 Delivery O2 Flow Rate FiO2 07/19/16 08:02 98.8 80 20 138/72 96 07/17/16 17:05 Room Air 07/17/16 15:38 2.0 Intake and Output 07/18/16 07/18/16 07/19/16 15:00 23:00 07:00 Intake Total 600 ml 950 ml 750 ml Balance 600 ml 950 ml 750 ml Exam Constitutional: alert, oriented, well developed Psych: nl mood/affect, no complaints Head: atraumatic, normocephalic Eyes: EOMI, PERRL, nl conjunctiva, nl lids, nl sclera ENMT: nl external ears & nose, nl lips & teeth, nl nasal mucosa & septum Neck: non-tender, supple Respiratory: clear to auscultation, normal air movement Cardiovascular: nl pulses, regular rate and rhythm Gastrointestinal: nl liver, spleen, non-tender, soft Musculoskeletal: nl extremities to inspection, nl gait and stance Extremities: normal pulses Neurological: LIQUOR COMMISSIONER II-XII intact, nl mental status, nl speech, nl strength Skin: nl turgor, No rash or lesions Lymph: nl lymph nodes Results Result Diagram: 07/15/16 0620 07/17/16 0550 Medications Medications Current Medications Dextrose/Sodium Chloride (D5-NS) 1,000 ml @ 75 mls/hr [id number] IV Last administered on 07/19/16t 05:33; Admin Dose 75 MLS/HR; Start 07/13/16 at 16:30 Acetaminophen (Tylenol Tab) 650 mg Q6H PRN PO PAIN AND OR ELEVATED TEMP; Start 07/13/16 at 16:30 Ondansetron HCl (Zofran Inj) 4 mg Q4H PRN IV NAUSEA AND/OR VOMITING Last administered on 07/14/16 06:15; Admin Dose 4 MG; Start 07/13/16 at 16:30 Morphine Sulfate (morphine) 2 mg Q4H PRN IV PAIN LEVEL 7-10 Last administered on 07/18/16 15:08; Admin Dose 2 MG; Start 07/13/16 at 16:30 Bisacodyl (Dulcolax Supp) 10 mg DAILY PRN [place] CONSTIPATION Last administered on 07/15/16 15:42; Admin Dose 10 MG; Start 07/15/16 at 15:00 Megestrol Acetate (Megace) 80 mg DAILY PO Last administered on 07/19/16 09:00; Admin Dose 80 MG; Start 07/18/16 at 09:00 Pantoprazole (Protonix Iv) 40 mg DAILY@06 IV ; Start 07/20/16 at 06:00 Hydralazine HCl (Apresoline) 10 mg Q6H PRN IV ELEVATED SYSTOLIC BP; Start at 06:30 ZACH ARAIZA MD Jul 19, 2016 19:08
--- NOTE | 2016-07-19 19:58 | PN ---
Date/Time of Note Date/Time of Note DATE: 07/19/16 TIME: 19:58 Assessment/Plan VTE Prophylaxis VTE Prophylaxis Intervention: other Lines/Catheters IV Catheter Type (from Nrs): Saline Lock Urinary Cath still in place: No Assessment/Plan Chief Complaint/Hosp Course MPRESSION: 1. Metastatic cancer, possible gastrointestinal. 2. Hyponatremia.better 3. Anemia. 4. Metabolic acidosis.better 5. Leukocytosis. 6 hypokalemia better plan ck biopsy per gi Problems: Subjective 24 Hr Interval Summary Respiratory: no complaints Cardiovascular: no complaints Gastrointestinal: pain (+) Exam/Review of Systems Vital Signs Vitals Vital Signs Date Time Temp Pulse Resp B/P Pulse Ox O2 Delivery O2 Flow Rate FiO2 07/19/16 08:02 98.8 80 20 138/72 96 07/17/16 17:05 Room Air 07/17/16 15:38 2.0 Intake and Output 07/18/16 07/18/16 07/19/16 15:00 23:00 07:00 Intake Total 600 ml 950 ml 750 ml Balance 600 ml 950 ml 750 ml Exam Neck: supple Respiratory: clear to auscultation Cardiovascular: regular rate and rhythm Gastrointestinal: bowel sounds (+) Results Result Diagram: 07/15/16 0620 07/17/16 0550 Medications Medications Current Medications Dextrose/Sodium Chloride (D5-NS) 1,000 ml @ 75 mls/hr [id number] IV Last administered on 07/19/16 19:37; Admin Dose 75 MLS/HR; Start 07/13/16 at 16:30 Acetaminophen (Tylenol Tab) 650 mg Q6H PRN PO PAIN AND OR ELEVATED TEMP; Start 07/13/16 at 16:30 Ondansetron HCl (Zofran Inj) 4 mg Q4H PRN IV NAUSEA AND/OR VOMITING Last administered on 07/14/16 06:15; Admin Dose 4 MG; Start 07/13/16 at 16:30 Morphine Sulfate (morphine) 2 mg Q4H PRN IV PAIN LEVEL 7-10 Last administered on 07/18/16 15:08; Admin Dose 2 MG; Start 07/13/16 at 16:30 Bisacodyl (Dulcolax Supp) 10 mg DAILY PRN [place] CONSTIPATION Last administered on 07/15/16 15:42; Admin Dose 10 MG; Start 07/15/16 at 15:00 Megestrol Acetate (Megace) 80 mg DAILY PO Last administered on 07/19/16t 09:00; Admin Dose 80 MG; Start 07/18/16 at 09:00 Pantoprazole (Protonix Iv) 40 mg DAILY@06 IV ; Start 07/20/16 at 06:00 Hydralazine HCl (Apresoline) 10 mg Q6H PRN IV ELEVATED SYSTOLIC BP; Start at 06:30 MK VALLE MD Jul 19, 2016 19:58
[2016-07-19 21:18] VITALS: BP 143/78; RESP 16
[2016-07-20] VITALS (13 sets, daily range): BP systolic 107–202; BP diastolic 64–122; PULSE 103–129; RESP 8–33
[2016-07-20] MEDS: PANTOPRAZOLE 40 MG INJ IV SCH (05:21)
[2016-07-20] MEDS: ONDANSETRON 4 MG INJ IV PRN (05:26)
--- NOTE | 2016-07-20 08:41 | CONS ---
Date/Time of Note Date/Time of Note DATE: 07/20/16 TIME: 08:40 Assessment/Plan Assessment/Plan Additional Assessment/Plan Additional Assessment/Plan IMPRESSION: 1. Metastatic liver disease. 2. Retroperitoneal and mediastinal lymphadenopathy. 3. High CEA. 4. History of black stool. 5. Constipation. 6. Strong family history of colon cancer. 7. Anorexia and weight loss. 8. Status post left inguinal node biopsy Plan Preliminary report adenocarcinoma, most probably coming from the lung. Awaiting for the final report awaiting final report Consultation Date/Type/Reason Admit Date/Time Jul 13, 2016 at 13:20 Initial Consult Date 07/14/16 Type of Consultation: Oncology Referring Provider: MK VALLE MD 24 HR Interval Summary Constitutional: no complaints Exam/Review of Systems Vital Signs Vitals Vital Signs Date Time Temp Pulse Resp B/P Pulse Ox O2 Delivery O2 Flow Rate FiO2 07/20/16 07:35 20 142/83 96 07/19/16 21:18 98.3 93 07/17/16 17:05 Room Air 07/17/16 15:38 2.0 Intake and Output 07/19/16 07/19/16 07/20/16 14:59 22:59 06:59 Intake Total 1600 ml 450 ml Balance 1600 ml 450 ml Exam Constitutional: alert, oriented, well developed Psych: nl mood/affect, no complaints Head: atraumatic, normocephalic Eyes: EOMI, PERRL, nl conjunctiva, nl lids, nl sclera ENMT: nl external ears & nose, nl lips & teeth, nl nasal mucosa & septum Neck: non-tender, supple Respiratory: clear to auscultation, normal air movement Cardiovascular: nl pulses, regular rate and rhythm Gastrointestinal: nl liver, spleen, non-tender, soft Musculoskeletal: nl extremities to inspection, nl gait and stance Extremities: normal pulses Neurological: SCOUT EXECUTIVE II-XII intact, nl mental status, nl speech, nl strength Skin: nl turgor, No rash or lesions Lymph: nl lymph nodes Results Result Diagram: 07/17/16 0550 Medications Medications Current Medications Dextrose/Sodium Chloride (D5-NS) 1,000 ml @ 75 mls/hr [id number] IV Last administered on 07/19/16t 19:37; Admin Dose 75 MLS/HR; Start 07/13/16 at 16:30 Acetaminophen (Tylenol Tab) 650 mg Q6H PRN PO PAIN AND OR ELEVATED TEMP; Start 07/13/16 at 16:30 Ondansetron HCl (Zofran Inj) 4 mg Q4H PRN IV NAUSEA AND/OR VOMITING Last administered on 07/20/16 05:26; Admin Dose 4 MG; Start 07/13/16 at 16:30 Morphine Sulfate (morphine) 2 mg Q4H PRN IV PAIN LEVEL 7-10 Last administered on 07/18/16 15:08; Admin Dose 2 MG; Start 07/13/16 at 16:30 Bisacodyl (Dulcolax Supp) 10 mg DAILY PRN [place] CONSTIPATION Last administered on 07/15/16 15:42; Admin Dose 10 MG; Start 07/15/16 at 15:00 Megestrol Acetate (Megace) 80 mg DAILY PO Last administered on 07/19/16 09:00; Admin Dose 80 MG; Start 07/18/16 at 09:00 Pantoprazole (Protonix Iv) 40 mg DAILY@06 IV Last administered on 07/20/16 05: 21; Admin Dose 40 MG; Start 07/20/16 at 06:00 Hydralazine HCl (Apresoline) 10 mg Q6H PRN IV ELEVATED SYSTOLIC BP; Start at 06:30 ZACH ARAIZA MD Jul 20, 2016 08:41
[2016-07-20] MEDS: MEGESTROL 40 MG TAB PO SCH (09:00)
[2016-07-20] MEDS: DEXTROSE 5%-0.9% NACL 1,000 ML IV SCH (12:00)
--- NOTE | 2016-07-20 12:03 | CONS ---
Date/Time of Note Date/Time of Note DATE: 07/20/16 TIME: 12:01 Assessment/Plan Assessment/Plan Chief Complaint/Hosp Course Mr. Munguia is a 61-year-old male with innumerable hepatic lesions seen on CT at [facility] and [place] although the latter was without contrast presumably due to renal insufficiency, likely metastatic disease. CT CAP 07/14/16 1. A left hilar mass measuring up to 2.4 cm in height by 2.7 cm transverse by 2.6 cm AP is identified to may be the result of the lung cancer. 2. There enlarged superior mediastinal and mediastinal lymph nodes. 3. Atherosclerotic vascular disease involving the aortic arch and coronary arteries. 4. Trace right pleural effusion. 5. Multiple hepatic metastases. 6. Extensive periportal, mesenteric, retroperitoneal metastatic lymphadenopathy. Additional metastatic retrocrural, pelvic sidewall and inguinal lymph nodes are identified as described. Carcinomatosis of the mesentery with ascites. 7. Bilateral benign hepatic cysts. 8. Bilateral adrenal masses as described. - Continue hydration, PPI, pain medications. - f/u blood and urine cultures to r/o infection given weakness, dehydration, failure to thrive and leukocytosis - s/p EGD 07/17/16 that demonstrated gastritis, esophagitis, intraluminal lesion created by metastatic liver disease, large hemorrhoids, 2.5 cm polyp s/p snare polypectomy. Path of gastric and rectal polyp biopsy showed no high grade dysplasia or malignancy. This finding cannot explain the metastasis in the liver. Patient definitely needs either liver biopsy or lymph node biopsy to clinch the primary diagnosis. - s/p satisfactory ultrasound-guided right inguinal lymphadenopathy biopsy today . Prelim results show metastatic poorly differentiated carcinoma, pending stains to determine primary. Possibly lung primary in the setting of left hilar mass and mediastinal LN - CEA elevated at 278, CA 19-9 and AFP within normal limits. Hepatitis panel negative. - Will continue to follow. Treatment will be determined based on path results. - Final path pending, however patient would like to go home. Will discuss with primary team and patient/family but can consider sending patient home and following up as an outpatient once final stains return. Problems: Consultation Date/Type/Reason Admit Date/Time Jul 13, 2016 at 13:20 Initial Consult Date 07/14/16 Type of Consultation: Oncology Referring Provider: MK VALLE MD 24 HR Interval Summary Free Text/Dictation Patient denies complaints and is resting/sleeping comfortably but arousable. Exam/Review of Systems Vital Signs Vitals Vital Signs Date Time Temp Pulse Resp B/P Pulse Ox O2 Delivery O2 Flow Rate FiO2 07/20/16 07:35 98.4 100 20 142/83 96 07/17/16 17:05 Room Air 07/17/16 15:38 2.0 Intake and Output 07/19/16 07/19/16 07/20/16 15:00 23:00 07:00 Intake Total 1600 ml 450 ml Balance 1600 ml 450 ml Exam Constitutional: alert, distress, frail Psych: anxiety, depression Head: normocephalic Eyes: nl conjunctiva ENMT: nl external ears & nose Neck: non-tender, supple Respiratory: clear to auscultation Cardiovascular: regular rate and rhythm Gastrointestinal: distended, firm Musculoskeletal: nl extremities to inspection Neurological: POLYMER SPECIALIST II-XII intact Results Result Diagram: 07/17/16 0550 Medications Medications Current Medications Dextrose/Sodium Chloride (D5-NS) 1,000 ml @ 75 mls/hr [id number] IV Last administered on 07/19/16 19:37; Admin Dose 75 MLS/HR; Start 07/13/16 at 16:30 Acetaminophen (Tylenol Tab) 650 mg Q6H PRN PO PAIN AND OR ELEVATED TEMP; Start 07/13/16 at 16:30 Ondansetron HCl (Zofran Inj) 4 mg Q4H PRN IV NAUSEA AND/OR VOMITING Last administered on 07/20/16 05:26; Admin Dose 4 MG; Start 07/13/16 at 16:30 Morphine Sulfate (morphine) 2 mg Q4H PRN IV PAIN LEVEL 7-10 Last administered on 07/18/16 15:08; Admin Dose 2 MG; Start 07/13/16 at 16:30 Bisacodyl (Dulcolax Supp) 10 mg DAILY PRN [place] CONSTIPATION Last administered on 07/15/16 15:42; Admin Dose 10 MG; Start 07/15/16 at 15:00 Megestrol Acetate (Megace) 80 mg DAILY PO Last administered on 07/19/16 09:00; Admin Dose 80 MG; Start 07/18/16 at 09:00 Pantoprazole (Protonix Iv) 40 mg DAILY@06 IV Last administered on 07/20/16t 05: 21; Admin Dose 40 MG; Start 07/20/16 at 06:00 Hydralazine HCl (Apresoline) 10 mg Q6H PRN IV ELEVATED SYSTOLIC BP; Start at 06:30 SRI RODRIGUEZ MD Jul 20, 2016 12:02
[2016-07-20] MEDS ORDERED: LORAZEPAM 2 MG INJ ONE (14:13)
[2016-07-20] MEDS ORDERED: LEVETIRACETAM 1000 MG (PMX) 100 ML IVPB STA (14:20)
[2016-07-20] MEDS ORDERED: LORAZEPAM 2 MG INJ IV ONE (14:30)
[2016-07-20 14:53] LABS: ADD SCAN DIFF NO
[2016-07-20 14:55] LABS: BASOPHIL # 0.1 10^3/ul (0.0-0.1); BASOPHILS % 0.3 % (0.0-2.0); EOSINOPHILS # 0.1 10^3/ul (0.0-0.5); EOSINOPHILS % 0.5 % (0.0-7.0); HEMATOCRIT 39.3 % (42.0-52.0); HEMOGLOBIN 12.7 g/dl (14.0-18.0); LYMPHOCYTES # 0.8 10^3/ul (0.8-2.9); LYMPHOCYTES % 5.3 % (15.0-51.0); MEAN CORPUSCULAR HEMOGLOBIN 28.2 pg (29.0-33.0); MEAN CORPUSCULAR HGB CONC 32.3 g/dl (32.0-37.0); MEAN CORPUSCULAR VOLUME 87.1 fl (82.0-101.0); MEAN PLATELET VOLUME 9.7 fl (7.4-10.4); MONOCYTE # 1.2 10^3/ul (0.3-0.9); MONOCYTES % 7.8 % (0.0-11.0); NEUTROPHIL # 12.7 10^3/ul (1.6-7.5); NEUTROPHILS % 85.1 % (39.0-77.0); NUCLEATED RED BLOOD CELLS # 0.1 10^3/ul (0.0-0.0); NUCLEATED RED BLOOD CELLS% 0.5 /100WBC (0.0-0.0); PLATELET COUNT 257 10^3/UL (140-415); RED BLOOD COUNT 4.51 10^6/ul (4.70-6.10); RED CELL DISTRIBUTION WIDTH 17.2 % (11.5-14.5); WHITE BLOOD COUNT 14.9 10^3/ul (4.8-10.8)
[2016-07-20 15:05] LABS: INR 1.08; PT RATIO 1.1
[2016-07-20 15:06] LABS: PARTIAL THROMBOPLASTIN TIME 29.7 Sec (25.0-35.0)
[2016-07-20 15:10] LABS: AADO2 Arterial 79.4 mmHg (7.0-24.0); Allen Test ACCEPTAB; Arterial Base Excess -5.9 mmol/L (-3.0-3); Arterial COHb 0.3 % (0.0-3.0); Arterial Fraction of Oxyhgb 97.5 % (93.0-99.0); Arterial HCO3 19.1 mmol/L (22.0-26.0); Arterial MetHb 0.3 % (0.0-1.5); Arterial Total Hemglobin 13.9 g/dl (12.0-18.0); MODE NASAL CANNULA
--- NOTE | 2016-07-20 15:11 | QN ---
Documentation Comment HPI: I was called to evaluate this patient's respiratory and breathing status. 61-year-old man recently admitted for metastatic cancer and hyponatremia suffered a tonic-clonic seizure which was witnessed. An initial dose of lorazepam IV was administered and with continued seizure activity a second bolus was given for a total of 4 mg of lorazepam IV. Patient's seizure broke and he remained in a postictal state so there was some worry about his respiratory effort and ability to protect his airway. Patient also suffered a tongue contusion and mild oral gingival bleeding. Past medical history: Metastatic cancer possibly gastrointestinal, anemia, hyponatremia Physical exam: GENERAL: Well-developed, appears postictal HEENT: Moist mucous membranes, pink conjunctiva, positive oral gingival bleeding NEURO: Nonverbal, eyes open, no focal deficits or facial asymmetry, responsive to painful stimuli CARDIAC: Tachycardic and regular, no murmurs rubs or gallops LUNGS: Clear bilaterally no wheezing crackles or stridor ABDOMEN: Soft nontender, no guarding, no rigidity, no rebound, no psoas sign no obturator sign. Normoactive bowel sounds SKIN: Warm and dry to touch, no abrasions, contusions, or hematomas, EXTREMITIES: No clubbing cyanosis or edema. Distal pulses equal and bilateral PSYCH: Unable to assess Medical decision making: This patient is at this time postictal and under the influence of 4 mg of lorazepam, although he is adequately protecting his airway has a good gag and cough reflex and is oxygenating at 100% on room air. His mental status has improved over the last 2 minutes and he seems more awake and alert. I do not recommend oral tracheal intubation at this time and suspect his mental status will continue improving. I recommend doing a stat arterial blood gas now and if his mental status remains the same to repeat the ABG in about 1-2 hours to assess for hypercarbia/hypoventilation. Possible etiologies include severe hyponatremia, metastasis to the brain, alcohol/drug withdrawal. Further management and testing deferred to PMD. Diagnostic impression: #1 acute tonic-clonic seizure and postictal state RASHAD WATSON MD Jul 20, 2016 15:10
[2016-07-20 15:25] LABS: ALBUMIN 2.7 g/dl (3.3-4.9); ALBUMIN/GLOBULIN RATIO 0.77; BILIRUBIN,DIRECT 2.3 mg/dl (0.00-0.20); BILIRUBIN,INDIRECT 0.8 mg/dl (0-1.1); BILIRUBIN,TOTAL 3.1 mg/dl (0.2-1.3); CALCIUM 7.9 mg/dl (8.4-10.2); CREATININE 0.69 mg/dl (0.61-1.24); MAGNESIUM 1.3 mg/dl (1.7-2.5); PHOSPHORUS 2.7 mg/dl (2.5-4.9); TOTAL PROTEIN 6.2 g/dl (6.1-8.1)
[2016-07-20 15:29] LABS: CREATINE KINASE 169 IU/L (23-200); POTASSIUM 2.8 mmol/L (3.5-5.1)
[2016-07-20 15:40] LABS: CK-MB 0.44 ng/ml (0.0-2.4)
[2016-07-20 15:42] LABS: TROPONIN-I < 0.012 ng/ml (0.00-0.12)
--- NOTE | 2016-07-20 15:57 | RADRPT ---
Vent Rate: 124 bpm RR Interval: 0 msec LA Interval: 130 msec QRS Duration: 84 msec QT Interval: 312 msec QTC Interval: 448 msec P-R-T [place]: 57 - -14 - 89 degrees Sinus tachycardia with occasional premature ventricular complexes Possible Left atrial enlargement Nonspecific ST and T wave abnormality Abnormal ECG Electronically Signed By: Nick Tirado [id number]
[2016-07-20] MEDS ORDERED: POTASSIUM CHLORIDE 250 ML IVPB ONE (16:00)
--- NOTE | 2016-07-20 16:50 | RADRPT ---
PROCEDURE: XR Chest. CLINICAL INDICATION: Check nasogastric tube position. TECHNIQUE: Single frontal view. COMPARISON: 07/13/2016. FINDINGS: There is a new nasogastric tube with the tip in the stomach. The lungs are clear. The heart size is normal. There is no pleural effusion. There is no pneumothorax. IMPRESSION: 1. Nasogastric tube tip in the stomach. 2. Clear lungs. RPTAT: QQ .David Verdin MD, MD Date Time Electronically viewed and signed by .David Verdin MD, MD on 07/20/2016 16:50 .R/
--- NOTE | 2016-07-20 18:41 | PN ---
DATE: 07/20/2016 Rapid response was called on this 61-year-old male because he was found unresponsive, and then he had a witnessed seizure. When I got to the patient's bedside, the patient was obtunded. He seemed to be postictal, and after I obtained the history, a quick physical examination, the patient was unresponsive. Eyes were rolled back. Was having coarse breathing. His breath sounds were coarse. His heart sounds were mildly tachycardic. Blood pressure was within range 147/70s and saturations were 96%. I ordered that patient receive Ativan 2 mg to help break the seizure, and while this was being obtained , the patient had another witnessed seizure in front of me. The patient was kept on his lateral side, and we allowed the seizure to pass. Post-seizure, we administered Ativan, and the patient calmed down somewhat, but he never actually regained consciousness. However, his breathing became more labored, and I was concerned that he would not be able to maintain his airway. He continued to maintain his saturations, however. He remained obtunded with eyes rolled back in the head, and I was concerned for ongoing seizures. So, I ordered a repeat Ativan of 2 mg which was given. At this time, the patient remained on the monitor. Blood pressure remained stable. Saturations were fine. However, after about 15 minutes, the patient still had not regained consciousness and he was not arousable, was not following commands. At this point, I requested the ER page someone for probable endotracheal intubation. Dr. Rowe responded, and after speaking together, we agreed that the patient did not need endotracheal intubation at that time. He was slightly postictal. We made a decision to do an ABG in about a half an hour, and and if it was worse then intubate the patient at that time. Also, in the meantime, I had ordered that patient received intravenous Keppra 1 gram loading dose, and this was being prepared by the pharmacy. Then I ordered that the patient be transferred to the intensive care unit. I ordered an NG tube to be inserted, which I did with the nursing staff at the bedside. NG tube seemed to be in position based on auscultation. A chest x-ray is pending for a trial placement. 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 At the time of my leaving the bedside, the patient is in stable condition and continues to maintain his saturations even though he has very coarse breathing. The patient had also bitten his tongue during his seizure and is having a lot of bloody secretions orally. NG tube was in place, and the patient was being transferred to the intensive care unit in stable condition. Further interventions will be per his primary doctor, Dr. Pham, and overall evaluation time has been about 1 hour. Dictated By: TARA SANCHEZ MD BA/NTS Conf#: [id number] DID#: [id number] MTDD
[2016-07-20] MEDS: POTASSIUM CHLORIDE 10 MEQ in DEXTROSE 5%-0.9% NACL 1,000 ML IV SCH (20:43)
[2016-07-20] MEDS ORDERED: LEVETIRACETAM IV 750 MG in SOD CHLORIDE 0.9% 100 ML IVPB SCH (21:00)
[2016-07-20] MEDS ORDERED: LEVETIRACETAM 500 MG (PMX) 100 ML IVPB SCH (21:00)
--- NOTE | 2016-07-20 21:15 | PN ---
Date/Time of Note Date/Time of Note DATE: 07/20/16 TIME: 21:13 Assessment/Plan VTE Prophylaxis VTE Prophylaxis Intervention: other Lines/Catheters IV C[facility] Type [facility]from [facility] Saline Lock Urinary Cath still in place: Yes Reason Cath still needed: other (indicate) Assessment/Plan Chief Complaint/Hosp Course MPRESSION: 1. Metastatic cancer, possible gastrointestinal. 2. Hyponatremia.better 3. Anemia. 4. Metabolic acidosis.better 5. Leukocytosis. 6 hypokalemia 7 abn lft 8 s/p felt cutter 9 s/p seizure plan neuro ct brain plan ck biopsy per gi Problems: Subjective 24 Hr Interval Summary Subjective hx not possible: other (s/p felt cutter and seizure) Exam/Review of Systems Vital Signs Vitals Vital Signs Date Time Temp Pulse Resp B/P Pulse Ox O2 Delivery O2 Flow Rate FiO2 07/20/16 20:55 88 20 100 Nasal Cannula 2.0 07/20/16 19:00 140/83 07/20/16 16:00 98.2 Intake and Output 07/19/16 07/19/16 07/20/16 15:00 23:00 07:00 Intake Total 1600 ml 450 ml Balance 1600 ml 450 ml Exam Neck: supple Respiratory: clear to auscultation Cardiovascular: regular rate and rhythm Gastrointestinal: bowel sounds (+), soft Extremities: No edema Neurological: lethargic (+) Results Result Diagram: 07/20/16 1440 07/20/16 1440 Results 24 hrs Laboratory Tests Test 07/20/16 14:13 07/20/16 14:40 07/20/16 15:10 Bedside Glucose 98 White Blood Count 14.9 H Red Blood Count 4.51 L Hemoglobin 12.7 L Hematocrit 39.3 L Mean Corpuscular Volume 87.1 Mean Corpuscular Hemoglobin 28.2 L Mean Corpuscular Hemoglobin Concent 32.3 Red Cell Distribution Width 17.2 H Platelet Count 257 Mean Platelet Volume 9.7 Neutrophils % 85.1 H Lymphocytes % 5.3 L Monocytes % 7.8 Eosinophils % 0.5 Basophils % 0.3 Nucleated Red Blood Cells % 0.5 H Neutrophils # 12.7 H Lymphocytes # 0.8 Monocytes # 1.2 H Eosinophils # 0.1 Basophils # 0.1 Nucleated Red Blood Cells # 0.1 H Prothrombin Time 14.0 Prothrombin Time Ratio 1.1 INR International Normalized Ratio 1.08 Activated Partial Thromboplast Time 29.7 Sodium Level 136 Potassium Level 2.8 *L Chloride Level 101 Carbon Dioxide Level 19 L Anion Gap 19 H Blood Urea Nitrogen 8 Creatinine 0.69 Glucose Level 115 Calcium Level 7.9 L Phosphorus Level 2.7 Magnesium Level 1.3 L Total Bilirubin 3.1 H Direct Bilirubin 2.30 H Indirect Bilirubin 0.8 Aspartate Amino Transf (AST/SGOT) 334 H Alanine Aminotransferase (ALT/SGPT) 84 H Alkaline Phosphatase 639 H Ammonia 55 H Creatine Kinase 169 Creatine Kinase Index 0.3 Creatinine Kinase MB (Mass) 0.44 Troponin I < 0.012 Total Protein 6.2 Albumin 2.7 L Globulin 3.50 H Albumin/Globulin Ratio 0.77 Blood Gas Specimen Source Blood arterial Arterial Blood Date Drawn 07/20/2016 3:01:16 PM Arterial Blood pH (Temp corrected) 7.340 L Arterial Blood pCO2 (Temp correct) 36.2 Arterial Blood pO2 (Temp corrected) 113.6 H Arterial Blood HCO3 19.1 L Arterial Blood Base Excess -5.9 L Arterial Blood Oxygen Saturation 98.1 H Dany Test ACCEPTAB Arterial Blood Gas Puncture Site Right Radial Arterial Blood Carboxyhemoglobin 0.3 Arterial Blood Methemoglobin 0.3 Blood Gas A-a O2 Differential 79.4 H Oxyhemoglobin Percent 97.5 Total Hemoglobin 13.9 Blood Gas Temperature 37.0 Blood Gas Modality NASAL CANNULA FiO2 33.0 Blood Gas Notified Whom JLD Blood Gas Notified Time 07/20/2016 3:09:30 PM Medications Medications Current Medications Acetaminophen (Tylenol Tab) 650 mg Q6H PRN PO PAIN AND OR ELEVATED TEMP; Start 07/13/16 at 16:30 Ondansetron HCl (Zofran Inj) 4 mg Q4H PRN IV NAUSEA AND/OR VOMITING Last administered on 07/20/16 05:26; Admin Dose 4 MG; Start 07/13/16 at 16:30 Morphine Sulfate (morphine) 2 mg Q4H PRN IV PAIN LEVEL 7-10 Last administered on 07/18/16 15:08; Admin Dose 2 MG; Start 07/13/16 at 16:30 Bisacodyl (Dulcolax Supp) 10 mg DAILY PRN [place] CONSTIPATION Last administered on 07/15/16 15:42; Admin Dose 10 MG; Start 07/15/16 at 15:00 Megestrol Acetate (Megace) 80 mg DAILY PO Last administered on 07/19/16 09:00; Admin Dose 80 MG; Start 07/18/16 at 09:00 Pantoprazole (Protonix Iv) 40 mg DAILY@06 IV Last administered on 07/20/16 05: 21; Admin Dose 40 MG; Start 07/20/16 at 06:00 Hydralazine HCl 10 mg 10 mg Q6H PRN IV ELEVATED SYSTOLIC BP; Start 07/19/16 at 06:30 Levetiracetam 100 ml @ 400 mls/hr Q12 IVPB ; Start 07/20/16 at 21:00 Potassium Chloride/Dextrose/ Sodium Chloride (KCl/D5-NS) 1,005 ml @ 125 mls/hr Q8H3M IV Last administered on 07/20/16 20:43; Admin Dose 125 MLS/HR; Start 07/20 at 18:00 MK VALLE MD Jul 20, 2016 21:15
--- NOTE | 2016-07-20 21:28 | RADRPT ---
PROCEDURE: CT Brain without contrast. CLINICAL INDICATION: Seizure. TECHNIQUE: A CT of the brain was performed on a multislice detector CT scanner utilizing axial sec tions from the skull base through the vertex without contrast. Images were reviewed on a [facility] [employer] [employer] PACS workstation. Exam CTDlvol = 89 mGy and DLP = 900 mGy-cm. One of the following 3 dose red uction techniques were used: Automated exposure control; adjustment of the mA and/or kV according to patient size; or use of iterative reconstruction technique. COMPARISON: None available FINDINGS: Study limited by motion. There is generalized central and peripheral atrophy. There is no midline shift. There is a moderate degree of supratentorial periventricular and subcortical white matter hy podensities. There is an indeterminate . Asymmetric right greater than left hypodensity within the medial aspect of the cerebellar hemispheres without mass effect on the fourth ventricle. There is no definite supratentorial acute stroke although the degree of motion limits evaluation.. There is no intracranial hemorrhage or abnormal extra-axial fluid collection. Visualized paranasal sinuses a re clear. IMPRESSION: 1. Limited by significant motion. Possible hypodensity in the cerebellar hemispheres, right greater than left, which may represent vasogenic edema from a mass, nonhemorrhagic infarcts or artifact fro m motion. Recommend repeat examination when clinically appropriate or MRI the brain.. 2. Nonspecific white matter changes most commonly seen with microvascular ischemic disease. Findings reported to ICU nurse Trena on 07/20/2016 9:24:10 PM. RPTAT: HMVK .Aman Sapp MD, MD Date Time Electronically viewed and signed by .Aman Sapp MD, MD on 07/20/2016 21:28 .K/
[2016-07-20] MEDS: LEVALBUTEROL (NEB) 1.25 MG/0.5 ML AMP HHN PRN (22:02)
[2016-07-20] MEDS: morphine 2 MG INJ IV PRN (23:30)
[2016-07-21] VITALS (22 sets, daily range): BP systolic 87–116; BP diastolic 48–75; PULSE 107–127; RESP 23–35
[2016-07-21] MEDS: POTASSIUM CHLORIDE 10 MEQ in DEXTROSE 5%-0.9% NACL 1,000 ML IV SCH ×3 (04:07→20:28)
[2016-07-21] MEDS: morphine 2 MG INJ IV PRN ×2 (04:36→21:56)
[2016-07-21 05:29] LABS: ADD SCAN DIFF NO
[2016-07-21 05:32] LABS: BASOPHILS % 0.3 % (0.0-2.0); EOSINOPHILS % 0.3 % (0.0-7.0); HEMATOCRIT 34.1 % (42.0-52.0); HEMOGLOBIN 11.2 g/dl (14.0-18.0); LYMPHOCYTES # 0.7 10^3/ul (0.8-2.9); LYMPHOCYTES % 6.3 % (15.0-51.0); MEAN CORPUSCULAR HEMOGLOBIN 28.5 pg (29.0-33.0); MEAN CORPUSCULAR HGB CONC 32.8 g/dl (32.0-37.0); MEAN CORPUSCULAR VOLUME 86.8 fl (82.0-101.0); MEAN PLATELET VOLUME 9.8 fl (7.4-10.4); MONOCYTE # 0.7 10^3/ul (0.3-0.9); MONOCYTES % 6.3 % (0.0-11.0); NEUTROPHIL # 9.6 10^3/ul (1.6-7.5); NEUTROPHILS % 85.9 % (39.0-77.0); NUCLEATED RED BLOOD CELLS # 0.1 10^3/ul (0.0-0.0); NUCLEATED RED BLOOD CELLS% 0.6 /100WBC (0.0-0.0); PLATELET COUNT 207 10^3/UL (140-415); RED BLOOD COUNT 3.93 10^6/ul (4.70-6.10); RED CELL DISTRIBUTION WIDTH 17.6 % (11.5-14.5); WHITE BLOOD COUNT 11.2 10^3/ul (4.8-10.8)
[2016-07-21] MEDS: PANTOPRAZOLE 40 MG INJ IV SCH (05:43)
[2016-07-21 05:54] LABS: ALBUMIN 2.3 g/dl (3.3-4.9); ALBUMIN/GLOBULIN RATIO 0.71; BILIRUBIN,DIRECT 1.3 mg/dl (0.00-0.20); BILIRUBIN,INDIRECT 0.7 mg/dl (0-1.1); CALCIUM 7.4 mg/dl (8.4-10.2); CREATININE 0.7 mg/dl (0.61-1.24); TOTAL PROTEIN 5.5 g/dl (6.1-8.1)
[2016-07-21 06:55] LABS: POTASSIUM 2.9 mmol/L (3.5-5.1)
[2016-07-21] MEDS ORDERED: POTASSIUM CHLORIDE 250 ML IVPB ONE (07:30)
[2016-07-21] MEDS: MEGESTROL 40 MG TAB PO SCH (09:00)
[2016-07-21] MEDS: LEVETIRACETAM 500 MG (PMX) 100 ML IVPB SCH ×2 (09:29→20:28)
--- NOTE | 2016-07-21 11:02 | CONS ---
Date/Time of Note Date/Time of Note DATE: 07/21/16 TIME: 10:56 Assessment/Plan Assessment/Plan Chief Complaint/Hosp Course Mr. Munguia is a 61-year-old male with innumerable hepatic lesions seen on CT at [facility] and [facility] although the latter was without contrast presumably due to renal insufficiency, likely metastatic disease, now s/p witnessed seizure 07/20/16. Imaging CT CAP 07/14/16 1. A left hilar mass measuring up to 2.4 cm in height by 2.7 cm transverse by 2.6 cm AP is identified to may be the result of the lung cancer. 2. There enlarged superior mediastinal and mediastinal lymph nodes. 3. Atherosclerotic vascular disease involving the aortic arch and coronary arteries. 4. Trace right pleural effusion. 5. Multiple hepatic metastases. 6. Extensive periportal, mesenteric, retroperitoneal metastatic lymphadenopathy. Additional metastatic retrocrural, pelvic sidewall and inguinal lymph nodes are identified as described. Carcinomatosis of the mesentery with ascites. 7. Bilateral benign hepatic cysts. 8. Bilateral adrenal masses as described. - Continue hydration, PPI, pain medications. - f/u blood and urine cultures to r/o infection given weakness, dehydration, failure to thrive and leukocytosis - s/p EGD 07/17/16 that demonstrated gastritis, esophagitis, intraluminal lesion created by metastatic liver disease, large hemorrhoids, 2.5 cm polyp s/p snare polypectomy. Path of gastric and rectal polyp biopsy showed no high grade dysplasia or malignancy. This finding cannot explain the metastasis in the liver. Patient definitely needs either liver biopsy or lymph node biopsy to clinch the primary diagnosis. - s/p satisfactory ultrasound-guided right inguinal lymphadenopathy biopsy today . Prelim results discussed with Dr. Marlow and show metastatic squamous or transitional cell carcinoma, with markers negative for lung, prostate or neuroendocrine. Pending additional stains for urothelial markers. Pending CA type ID which was sent and may take 1 week to help identify primary. - CEA elevated at 278, CA 19-9 and AFP within normal limits. Hepatitis panel negative. - Will continue to follow. Treatment will be determined based on path results. At this point, the patient is not in a state that would allow him to undergo chemotherapy. - Patient now s/p seizure with brain CT limited by motion. Recommend repeat examination when clinically appropriate or MRI the brain. Would also recommend neurology consultation and EEG if not already done. - Patient also with poor nutrition. I had an extensive discussion with the family, including sister Ty and another sister and brother in law, that Thanh is terminally ill and has a poor functional status and that often at the end of life, their decreased appetite is a consequence of rather than a cause of their decline. However, the family state that the patient stated that he was not ready to and wanted to receive chemotherapy and optimize his functional status in order to receive treatment. Although it may not be reversible, they would like to try to optimize his nutritional status. Consider swallow eval and/or replacement of NG tube. Can also add marinol for appetite. - Patient also with elevated bilirubin to 3.1, now downtrending to 2, with ammonia 55, likely related to extensive hepatic mets with possible component of shock liver. - altered mental status may be a component of hepatic encephalopathy due to extensive liver mets (elevated ammonia), narcotics, possible brain mets - I discussed code status with the family and recommended against heroic measures such as chest compressions, shocking or intubation as if he were to have a catastrophic event, the changes of returning to a level with meaningful quality of life would be low and would likely be more harmful than beneficial. However, the family would like to discuss further prior to making a decision. - Would recommend palliative care consultation with Dr. Peralta Patient's sister Ty work phone , cell phone Problems: Consultation Date/Type/Reason Admit Date/Time Jul 13, 2016 at 13:20 Initial Consult Date 07/14/16 Type of Consultation: Oncology Referring Provider: MK VALLE MD 24 HR Interval Summary Free Text/Dictation Patient was found unresponsive yesterday afternoon and then had a witnessed seizure. The patient received Ativan, Keppra, NG tube was inserted and pt transferred to the ICU. CT brain was limited by motion with possible hypodensity in the cerebellar hemispheres, right greater than left, which may represent vasogenic edema from a mass, nonhemorrhagic infarcts or artifact from motion. Patient remains less alert and more somnolent though does follow commands and opens eyes. No further seizure activity. Per nursing, he had pulled out his NG tube and does have more secretions and decreased appetite. Exam/Review of Systems Vital Signs Vitals Vital Signs Date Time Temp Pulse Resp B/P Pulse Ox O2 Delivery O2 Flow Rate FiO2 07/21/16 08:00 111 07/21/16 08:00 98.8 27 92/55 97 Nasal Cannula 07/21/16 00:29 2.0 Intake and Output 07/20/16 07/20/16 07/21/16 15:00 23:00 07:00 Intake Total 100 ml 1075.0 ml 1005 ml Output Total 440 ml 360 ml Balance 100 ml 635.0 ml 645 ml Exam Constitutional: frail, non-verbal Psych: confusion Head: normocephalic Eyes: icteric Neck: supple Respiratory: clear to auscultation Cardiovascular: regular rate and rhythm Gastrointestinal: non-tender, soft Musculoskeletal: nl extremities to inspection Results Result Diagram: 07/21/160 07/21/16 0440 Results 24 hrs Laboratory Tests Test 07/20/16 14:13 07/20/16 14:40 07/20/16 15:10 07/21/16 04:40 Bedside Glucose 98 White Blood Count 14.9 H 11.2 #H Red Blood Count 4.51 L 3.93 L Hemoglobin 12.7 L 11.2 L Hematocrit 39.3 L 34.1 L Mean Corpuscular Volume 87.1 86.8 Mean Corpuscular Hemoglobin 28.2 L 28.5 L Mean Corpuscular Hemoglobin Concent 32.3 32.8 Red Cell Distribution Width 17.2 H 17.6 H Platelet Count 257 207 Mean Platelet Volume 9.7 9.8 Neutrophils % 85.1 H 85.9 H Lymphocytes % 5.3 L 6.3 L Monocytes % 7.8 6.3 Eosinophils % 0.5 0.3 Basophils % 0.3 0.3 Nucleated Red Blood Cells % 0.5 H 0.6 H Neutrophils # 12.7 H 9.6 H Lymphocytes # 0.8 0.7 L Monocytes # 1.2 H 0.7 Eosinophils # 0.1 0.0 Basophils # 0.1 0.0 Nucleated Red Blood Cells # 0.1 H 0.1 H Prothrombin Time 14.0 Prothrombin Time Ratio 1.1 INR International Normalized Ratio 1.08 Activated Partial Thromboplast Time 29.7 Sodium Level 136 138 Potassium Level 2.8 *L 2.9 *L Chloride Level 101 106 Carbon Dioxide Level 19 L 24 Anion Gap 19 H 11 # Blood Urea Nitrogen 8 10 Creatinine 0.69 0.70 Glucose Level 115 113 Calcium Level 7.9 L 7.4 L Phosphorus Level 2.7 Magnesium Level 1.3 L Total Bilirubin 3.1 H 2.0 H Direct Bilirubin 2.30 H 1.30 #H Indirect Bilirubin 0.8 0.7 Aspartate Amino Transf (AST/SGOT) 334 H 487 H Alanine Aminotransferase (ALT/SGPT) 84 H 94 H Alkaline Phosphatase 639 H 539 H Ammonia 55 H Creatine Kinase 169 Creatine Kinase Index 0.3 Creatinine Kinase MB (Mass) 0.44 Troponin I < 0.012 Total Protein 6.2 5.5 L Albumin 2.7 L 2.3 L Globulin 3.50 H 3.20 Albumin/Globulin Ratio 0.77 0.71 Blood Gas Specimen Source Blood arterial Arterial Blood Date Drawn 07/20/2016 3:01:16 PM Arterial Blood pH (Temp corrected) 7.340 L Arterial Blood pCO2 (Temp correct) 36.2 Arterial Blood pO2 (Temp corrected) 113.6 H Arterial Blood HCO3 19.1 L Arterial Blood Base Excess -5.9 L Arterial Blood Oxygen Saturation 98.1 H Dany Test ACCEPTAB Arterial Blood Gas Puncture Site Right Radial Arterial Blood Carboxyhemoglobin 0.3 Arterial Blood Methemoglobin 0.3 Blood Gas A-a O2 Differential 79.4 H Oxyhemoglobin Percent 97.5 Total Hemoglobin 13.9 Blood Gas Temperature 37.0 Blood Gas Modality NASAL CANNULA FiO2 33.0 Blood Gas Notified Whom JLD Blood Gas Notified Time 07/20/2016 3:09:30 PM Medications Medications Current Medications Acetaminophen (Tylenol Tab) 650 mg Q6H PRN PO PAIN AND OR ELEVATED TEMP; Start 07/13/16 at 16:30 Ondansetron HCl (Zofran Inj) 4 mg Q4H PRN IV NAUSEA AND/OR VOMITING Last administered on 07/20/16 05:26; Admin Dose 4 MG; Start 07/13/16 at 16:30 Morphine Sulfate (morphine) 2 mg Q4H PRN IV PAIN LEVEL 7-10 Last administered on 07/21/16 04:36; Admin Dose 2 MG; Start 07/13/16 at 16:30 Bisacodyl (Dulcolax Supp) 10 mg DAILY PRN [place] CONSTIPATION Last administered on 07/15/16 15:42; Admin Dose 10 MG; Start 07/15/16 at 15:00 Megestrol Acetate (Megace) 80 mg DAILY PO Last administered on 07/19/16 09:00; Admin Dose 80 MG; Start 07/18/16 at 09:00 Pantoprazole (Protonix Iv) 40 mg DAILY@06 IV Last administered on 07/21/16 05: 43; Admin Dose 40 MG; Start 07/20/16 at 06:00 Hydralazine HCl 10 mg 10 mg Q6H PRN IV ELEVATED SYSTOLIC BP; Start 07/19/16 at 06:30 Potassium Chloride 10 meq/ Dextrose/Sodium Chloride 1,005 ml @ 125 mls/hr Q8H3M IV Last administered on 07/21/16 04:07; Admin Dose 125 MLS/HR; Start 07/20 at 18:00 Levetiracetam 100 ml @ 400 mls/hr Q12 IVPB Last administered on 07/21/16 09:29 ; Admin Dose 400 MLS/HR; Start 07/21/16 at 00:07 Potassium Chloride (KCl 40 MEQ/250 ML NS) 250 ml @ 62.5 mls/hr ONCE ONCE IVPB Last administered on 07/21/16 07:53; Admin Dose 62.5 MLS/HR; Start 07/21/16 at 07:30; Stop 07/21/16 at 11:29 TOSRI MD Jul 21, 2016 11:02
--- NOTE | 2016-07-21 17:29 | PN ---
Date/Time of Note Date/Time of Note DATE: 07/21/16 TIME: 17:26 Assessment/Plan VTE Prophylaxis VTE Prophylaxis Intervention: other Lines/Catheters IV [facility] Urinary Cath still in place: Yes Reason Cath still needed: other (indicate) Assessment/Plan Chief Complaint/Hosp Course MPRESSION: 1. Metastatic cancer, possible gastrointestinal. 2. Hyponatremia.better 3. Anemia. 4. Metabolic acidosis.better 5. Leukocytosis. 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 plan neuro ct brain plan ck biopsy per gi per oncology Problems: Subjective 24 Hr Interval Summary Respiratory: no complaints Cardiovascular: no complaints Gastrointestinal: no complaints Genitourinary: no complaints Musculoskeletal: no complaints Skin: no complaints Exam/Review of Systems Vital Signs Vitals Vital Signs Date Time Temp Pulse Resp B/P Pulse Ox O2 Delivery O2 Flow Rate FiO2 07/21/16 16:00 124 32 116/75 97 Nasal Cannula 07/21/16 14:00 100.1 07/21/16 08:00 2.0 Intake and Output 07/20/16 07/20/16 07/21/16 15:00 23:00 07:00 Intake Total 100 ml 1075.0 ml 1005 ml Output Total 440 ml 360 ml Balance 100 ml 635.0 ml 645 ml Exam Neck: supple Respiratory: clear to auscultation Cardiovascular: regular rate and rhythm Gastrointestinal: soft Musculoskeletal: nl extremities to inspection Extremities: normal pulses Results Result Diagram: 07/21/16 0440 07/21/16 0440 Results 24 hrs Laboratory Tests Test 07/21/16 04:40 White Blood Count 11.2 #H Red Blood Count 3.93 L Hemoglobin 11.2 L Hematocrit 34.1 L Mean Corpuscular Volume 86.8 Mean Corpuscular Hemoglobin 28.5 L Mean Corpuscular Hemoglobin Concent 32.8 Red Cell Distribution Width 17.6 H Platelet Count 207 Mean Platelet Volume 9.8 Neutrophils % 85.9 H Lymphocytes % 6.3 L Monocytes % 6.3 Eosinophils % 0.3 Basophils % 0.3 Nucleated Red Blood Cells % 0.6 H Neutrophils # 9.6 H Lymphocytes # 0.7 L Monocytes # 0.7 Eosinophils # 0.0 Basophils # 0.0 Nucleated Red Blood Cells # 0.1 H Sodium Level 138 Potassium Level 2.9 *L Chloride Level 106 Carbon Dioxide Level 24 Anion Gap 11 # Blood Urea Nitrogen 10 Creatinine 0.70 Glucose Level 113 Calcium Level 7.4 L Total Bilirubin 2.0 H Direct Bilirubin 1.30 #H Indirect Bilirubin 0.7 Aspartate Amino Transf (AST/SGOT) 487 H Alanine Aminotransferase (ALT/SGPT) 94 H Alkaline Phosphatase 539 H Total Protein 5.5 L Albumin 2.3 L Globulin 3.20 Albumin/Globulin Ratio 0.71 Medications Medications Current Medications Acetaminophen (Tylenol Tab) 650 mg Q6H PRN PO PAIN AND OR ELEVATED TEMP; Start 07/13/16 at 16:30 Ondansetron HCl (Zofran Inj) 4 mg Q4H PRN IV NAUSEA AND/OR VOMITING Last administered on 07/20/16 05:26; Admin Dose 4 MG; Start 07/13/16 at 16:30 Morphine Sulfate (morphine) 2 mg Q4H PRN IV PAIN LEVEL 7-10 Last administered on 07/21/16 04:36; Admin Dose 2 MG; Start 07/13/16 at 16:30 Bisacodyl (Dulcolax Supp) 10 mg DAILY PRN [place] CONSTIPATION Last administered on 07/15/16 15:42; Admin Dose 10 MG; Start 07/15/16 at 15:00 Megestrol Acetate (Megace) 80 mg DAILY PO Last administered on 07/19/16 09:00; Admin Dose 80 MG; Start 07/18/16 at 09:00 Pantoprazole (Protonix Iv) 40 mg DAILY@06 IV Last administered on 07/21/16 05: 43; Admin Dose 40 MG; Start 07/20/16 at 06:00 Hydralazine HCl 10 mg 10 mg Q6H PRN IV ELEVATED SYSTOLIC BP; Start 07/19/16 at 06:30 Potassium Chloride 10 meq/ Dextrose/Sodium Chloride 1,005 ml @ 125 mls/hr Q8H3M IV Last administered on 07/21/16 13:09; Admin Dose 125 MLS/HR; Start 07/20 at 18:00 Levetiracetam (Keppra 500 Mg/ 100ml (Pmx)) 100 ml @ 400 mls/hr Q12 IVPB Last administered on 07/21/16 09:29; Admin Dose 400 MLS/HR; Start 07/21/16 at 00:07 Dronabinol 2.5 mg 2.5 mg BID PO ; Start 07/21/16 at 21:00 Ceftriaxone Sodium (Rocephin) 50 ml @ 100 mls/hr Q24H IVPB ; Start 07/21/16 at 16:00 MK VALLE MD Jul 21, 2016 17:29
[2016-07-21] MEDS: CEFTRIAXONE 1 GM/50 ML (PMX) 50 ML IVPB SCH (17:53)
--- NOTE | 2016-07-21 17:56 | CONS ---
Date/Time of Note Date/Time of Note DATE: 07/21/16 TIME: 17:55 Assessment/Plan Assessment/Plan Additional Assessment/Plan Additional Assessment/Plan IMPRESSION: 1. Metastatic liver disease. 2. Retroperitoneal and mediastinal lymphadenopathy. 3. High CEA. 4. History of black stool. 5. Constipation. 6. Strong family history of colon cancer. 7. Anorexia and weight loss. 8. Status post left inguinal node biopsy 9. Patient had a seizure and was transferred to intensive care unit he is lethargic now Plan Continue on anti-seizure medication CT scan of the brain to rule out any metastases Lactulose once the NG tube is inserted Patient has a metastatic squamous cell cancer primary needs to be determined hopefully by immunostain Consultation Date/Type/Reason Admit Date/Time Jul 13, 2016 at 13:20 Initial Consult Date 07/14/16 Type of Consultation: Oncology Referring Provider: MK VALLE MD 24 HR Interval Summary Subjective hx not possible: pt critical Exam/Review of Systems Vital Signs Vitals Vital Signs Date Time Temp Pulse Resp B/P Pulse Ox O2 Delivery O2 Flow Rate FiO2 07/21/16 16:00 124 32 116/75 97 Nasal Cannula 07/21/16 14:00 100.1 07/21/16 08:00 2.0 Intake and Output 07/20/16 07/20/16 07/21/16 15:00 23:00 07:00 Intake Total 100 ml 1075.0 ml 1005 ml Output Total 440 ml 360 ml Balance 100 ml 635.0 ml 645 ml Exam Constitutional: alert, oriented, well developed Psych: nl mood/affect, no complaints Head: atraumatic, normocephalic Eyes: EOMI, PERRL, nl conjunctiva, nl lids, nl sclera ENMT: nl external ears & nose, nl lips & teeth, nl nasal mucosa & septum Neck: non-tender, supple Respiratory: clear to auscultation, normal air movement Cardiovascular: nl pulses, regular rate and rhythm Gastrointestinal: nl liver, spleen, non-tender, soft Musculoskeletal: nl extremities to inspection, nl gait and stance Extremities: normal pulses Neurological: MASSEUR/MASSEUSE II-XII intact, nl mental status, nl speech, nl strength Skin: nl turgor, No rash or lesions Lymph: nl lymph nodes Results Result Diagram: 07/21/160 07/21/16 0440 Results 24 hrs Laboratory Tests Test 07/21/16 04:40 White Blood Count 11.2 #H Red Blood Count 3.93 L Hemoglobin 11.2 L Hematocrit 34.1 L Mean Corpuscular Volume 86.8 Mean Corpuscular Hemoglobin 28.5 L Mean Corpuscular Hemoglobin Concent 32.8 Red Cell Distribution Width 17.6 H Platelet Count 207 Mean Platelet Volume 9.8 Neutrophils % 85.9 H Lymphocytes % 6.3 L Monocytes % 6.3 Eosinophils % 0.3 Basophils % 0.3 Nucleated Red Blood Cells % 0.6 H Neutrophils # 9.6 H Lymphocytes # 0.7 L Monocytes # 0.7 Eosinophils # 0.0 Basophils # 0.0 Nucleated Red Blood Cells # 0.1 H Sodium Level 138 Potassium Level 2.9 *L Chloride Level 106 Carbon Dioxide Level 24 Anion Gap 11 # Blood Urea Nitrogen 10 Creatinine 0.70 Glucose Level 113 Calcium Level 7.4 L Total Bilirubin 2.0 H Direct Bilirubin 1.30 #H Indirect Bilirubin 0.7 Aspartate Amino Transf (AST/SGOT) 487 H Alanine Aminotransferase (ALT/SGPT) 94 H Alkaline Phosphatase 539 H Total Protein 5.5 L Albumin 2.3 L Globulin 3.20 Albumin/Globulin Ratio 0.71 Medications Medications Current Medications Acetaminophen (Tylenol Tab) 650 mg Q6H PRN PO PAIN AND OR ELEVATED TEMP; Start 07/13/16 at 16:30 Ondansetron HCl (Zofran Inj) 4 mg Q4H PRN IV NAUSEA AND/OR VOMITING Last administered on 07/20/16 05:26; Admin Dose 4 MG; Start 07/13/16 at 16:30 Morphine Sulfate (morphine) 2 mg Q4H PRN IV PAIN LEVEL 7-10 Last administered on 07/21/16 04:36; Admin Dose 2 MG; Start 07/13/16 at 16:30 Bisacodyl (Dulcolax Supp) 10 mg DAILY PRN [place] CONSTIPATION Last administered on 07/15/16 15:42; Admin Dose 10 MG; Start 07/15/16 at 15:00 Megestrol Acetate (Megace) 80 mg DAILY PO Last administered on 07/19/16 09:00; Admin Dose 80 MG; Start 07/18/16 at 09:00 Pantoprazole (Protonix Iv) 40 mg DAILY@06 IV Last administered on 07/21/16 05: 43; Admin Dose 40 MG; Start 07/20/16 at 06:00 Hydralazine HCl 10 mg 10 mg Q6H PRN IV ELEVATED SYSTOLIC BP; Start 07/19/16 at 06:30 Potassium Chloride 10 meq/ Dextrose/Sodium Chloride 1,005 ml @ 125 mls/hr Q8H3M IV Last administered on 07/21/16 13:09; Admin Dose 125 MLS/HR; Start 07/20 at 18:00 Levetiracetam (Keppra 500 Mg/ 100ml (Pmx)) 100 ml @ 400 mls/hr Q12 IVPB Last administered on 07/21/16 09:29; Admin Dose 400 MLS/HR; Start 07/21/16 at 00:07 Dronabinol 2.5 mg 2.5 mg BID PO ; Start 07/21/16 at 21:00 Ceftriaxone Sodium (Rocephin) 50 ml @ 100 mls/hr Q24H IVPB Last administered on 07/21/16 17:53; Admin Dose 100 MLS/HR; Start 07/21/16 at 16:00 ZACH ARAIZA MD Jul 21, 2016 17:56
--- NOTE | 2016-07-21 18:33 | RADRPT ---
PROCEDURE: XR Chest. CLINICAL INDICATION: Shortness of breath. TECHNIQUE: Single frontal view. COMPARISON: 07/20/2016. FINDINGS: The nasogastric tube has been removed. There is mild atelectasis at the left lung base. The lungs are otherwise clear. The heart size is normal. There is no pleural effusion. There is no pneumothorax. IMPRESSION: 1. Nasogastric tube removed. 2. Mild left basilar atelectasis. 3. Otherwise normal chest x-ray. RPTAT: QQ .David Verdin MD, MD Date Time Electronically viewed and signed by .David Verdin MD, MD on 07/21/2016 18:32 .R/
[2016-07-21] MEDS: DRONABINOL 2.5 MG CAP PO SCH (21:00)
[2016-07-21] MEDS: POTASSIUM CHLORIDE 50 ML IVPB PRN ×3 (21:56→23:52)
[2016-07-22] VITALS (26 sets, daily range): BP systolic 85–118; BP diastolic 51–78; PULSE 107–130; RESP 22–37
[2016-07-22] MEDS: POTASSIUM CHLORIDE 10 MEQ in DEXTROSE 5%-0.9% NACL 1,000 ML IV SCH ×3 (02:12→23:23)
[2016-07-22 05:12] LABS: ADD SCAN DIFF NO
[2016-07-22 05:18] LABS: BASOPHIL # 0.1 10^3/ul (0.0-0.1); BASOPHILS % 0.4 % (0.0-2.0); EOSINOPHILS # 0.1 10^3/ul (0.0-0.5); EOSINOPHILS % 0.5 % (0.0-7.0); HEMATOCRIT 34.6 % (42.0-52.0); HEMOGLOBIN 10.8 g/dl (14.0-18.0); LYMPHOCYTES % 6.2 % (15.0-51.0); MEAN CORPUSCULAR HEMOGLOBIN 28.3 pg (29.0-33.0); MEAN CORPUSCULAR HGB CONC 31.2 g/dl (32.0-37.0); MEAN CORPUSCULAR VOLUME 90.6 fl (82.0-101.0); MEAN PLATELET VOLUME 10.1 fl (7.4-10.4); MONOCYTE # 1.1 10^3/ul (0.3-0.9); NEUTROPHIL # 13.8 10^3/ul (1.6-7.5); NUCLEATED RED BLOOD CELLS # 0.1 10^3/ul (0.0-0.0); NUCLEATED RED BLOOD CELLS% 0.6 /100WBC (0.0-0.0); PLATELET COUNT 208 10^3/UL (140-415); RED BLOOD COUNT 3.82 10^6/ul (4.70-6.10); WHITE BLOOD COUNT 16.2 10^3/ul (4.8-10.8)
[2016-07-22] MEDS: PANTOPRAZOLE 40 MG INJ IV SCH (05:31)
[2016-07-22 05:34] LABS: ALBUMIN 2.2 g/dl (3.3-4.9)
[2016-07-22 05:35] LABS: POTASSIUM 3.7 mmol/L (3.5-5.1)
[2016-07-22 05:37] LABS: BILIRUBIN,DIRECT 1.6 mg/dl (0.00-0.20); BILIRUBIN,INDIRECT 0.8 mg/dl (0-1.1); BILIRUBIN,TOTAL 2.4 mg/dl (0.2-1.3); CREATININE 1.26 mg/dl (0.61-1.24)
[2016-07-22 05:38] LABS: ALBUMIN/GLOBULIN RATIO 0.66; CALCIUM 7.3 mg/dl (8.4-10.2); TOTAL PROTEIN 5.5 g/dl (6.1-8.1)
[2016-07-22] MEDS: POTASSIUM CHLORIDE 50 ML IVPB PRN (06:15)
--- NOTE | 2016-07-22 07:58 | CONS ---
Date/Time of Note Date/Time of Note DATE: 07/22/16 TIME: 07:56 Assessment/Plan Assessment/Plan Chief Complaint/Hosp Course Mr. Munguia is a 61-year-old male with innumerable hepatic lesions seen on CT at [facility] and [place] although the latter was without contrast presumably due to renal insufficiency, likely metastatic disease, now s/p witnessed seizure 07/20/16. Imaging CT CAP 07/14/16 1. A left hilar mass measuring up to 2.4 cm in height by 2.7 cm transverse by 2.6 cm AP is identified to may be the result of the lung cancer. 2. There enlarged superior mediastinal and mediastinal lymph nodes. 3. Atherosclerotic vascular disease involving the aortic arch and coronary arteries. 4. Trace right pleural effusion. 5. Multiple hepatic metastases. 6. Extensive periportal, mesenteric, retroperitoneal metastatic lymphadenopathy. Additional metastatic retrocrural, pelvic sidewall and inguinal lymph nodes are identified as described. Carcinomatosis of the mesentery with ascites. 7. Bilateral benign hepatic cysts. 8. Bilateral adrenal masses as described. - Continue hydration, PPI, pain medications. - f/u blood and urine cultures to r/o infection given weakness, dehydration, failure to thrive and leukocytosis - s/p EGD 07/17/16 that demonstrated gastritis, esophagitis, intraluminal lesion created by metastatic liver disease, large hemorrhoids, 2.5 cm polyp s/p snare polypectomy. Path of gastric and rectal polyp biopsy showed no high grade dysplasia or malignancy. This finding cannot explain the metastasis in the liver. Patient definitely needs either liver biopsy or lymph node biopsy to clinch the primary diagnosis. - s/p satisfactory ultrasound-guided right inguinal lymphadenopathy biopsy today . Prelim results discussed with Dr. Marlow and show metastatic squamous or transitional cell carcinoma, with markers negative for lung, prostate or neuroendocrine. Pending additional stains for urothelial markers. Pending CA type ID which was sent and may take 1 week to help identify primary. - CEA elevated at 278, CA 19-9 and AFP within normal limits. Hepatitis panel negative. - Will continue to follow. Treatment will be determined based on path results. At this point, the patient is not in a state that would allow him to undergo chemotherapy. - Patient now s/p seizure with brain CT limited by motion. Recommend repeat examination when clinically appropriate or MRI the brain. At this point, may not tolerate another CT scan; he is somewhat sedated with morphine however RN notes BP drops so may not be safe at this point to repeat scan. Would also recommend neurology consultation and EEG if not already done. - Patient also with poor nutrition. I had an extensive discussion with the family, including sister Ty and another sister and brother in law, that Thanh is terminally ill and has a poor functional status and that often at the end of life, their decreased appetite is a consequence of rather than a cause of their decline. However, the family state that the patient stated that he was not ready to and wanted to receive chemotherapy and optimize his functional status in order to receive treatment. Although it may not be reversible, they would like to try to optimize his nutritional status. Pending swallow eval though unlikely to pass. NG tube was replaced by pulled out by patient. Added marinol for appetite however patient unable to tolerate PO. - Patient also with elevated bilirubin with ammonia 55, likely related to extensive hepatic mets with possible component of shock liver. - Acute renal failure and hypernatremia, likely related to dehydration, management per primary team - altered mental status may be a component of hepatic encephalopathy due to extensive liver mets (elevated ammonia), narcotics, possible brain mets. Consider rectal lactulose for hepatic encephalopathy to improve mental status. - I discussed code status with the family and recommended against heroic measures such as chest compressions, shocking or intubation as if he were to have a catastrophic event, the changes of returning to a level with meaningful quality of life would be low and would likely be more harmful than beneficial. However, the family would like to discuss further prior to making a decision. - plan for palliative care consultation with Dr. Peralta today. If can titrate pain meds and manage hepatic encephalopathy, can see if can improve mental status to understand patient's wishes. Patient's sister Ty work phone , cell phone Problems: Consultation Date/Type/Reason Admit Date/Time Jul 13, 2016 at 13:20 Initial Consult Date 07/14/16 Type of Consultation: Oncology Referring Provider: MK VALLE MD 24 HR Interval Summary Free Text/Dictation The patient is nonverbal, opens eyes to command but does not consistently follow commands and does not fully comprehend situation or wishes. Exam/Review of Systems Vital Signs Vitals Vital Signs Date Time Temp Pulse Resp B/P Pulse Ox O2 Delivery O2 Flow Rate FiO2 07/22/16 07:00 110 24 91/51 98 Nasal Cannula 07/22/16 04:00 98.9 07/22/16 02:52 2.0 27 Intake and Output 07/21/16 07/21/16 07/22/16 15:00 23:00 07:00 Intake Total 1100 ml 1200 ml 850 ml Output Total 540 ml 130 ml Balance 1100 ml 660 ml 720 ml Exam Constitutional: frail, non-verbal Psych: confusion Head: normocephalic Eyes: icteric Neck: supple Respiratory: clear to auscultation Cardiovascular: regular rate and rhythm Gastrointestinal: non-tender, soft Musculoskeletal: nl extremities to inspection Results Result Diagram: 07/22/16 0435 07/22/16 0435 Results 24 hrs Laboratory Tests Test 07/21/16 18:30 07/22/16 04:35 Potassium Level 3.2 L 3.7 White Blood Count 16.2 #H Red Blood Count 3.82 L Hemoglobin 10.8 L Hematocrit 34.6 L Mean Corpuscular Volume 90.6 Mean Corpuscular Hemoglobin 28.3 L Mean Corpuscular Hemoglobin Concent 31.2 L Red Cell Distribution Width 19.0 H Platelet Count 208 Mean Platelet Volume 10.1 Neutrophils % 85.0 H Lymphocytes % 6.2 L Monocytes % 7.0 Eosinophils % 0.5 Basophils % 0.4 Nucleated Red Blood Cells % 0.6 H Neutrophils # 13.8 H Lymphocytes # 1.0 Monocytes # 1.1 H Eosinophils # 0.1 Basophils # 0.1 Nucleated Red Blood Cells # 0.1 H Sodium Level 145 H Chloride Level 111 H Carbon Dioxide Level 17 L Anion Gap 21 #H Blood Urea Nitrogen 14 Creatinine 1.26 H Glucose Level 89 Calcium Level 7.3 L Total Bilirubin 2.4 H Direct Bilirubin 1.60 H Indirect Bilirubin 0.8 Aspartate Amino Transf (AST/SGOT) 644 H Alanine Aminotransferase (ALT/SGPT) 114 H Alkaline Phosphatase 409 H Total Protein 5.5 L Albumin 2.2 L Globulin 3.30 H Albumin/Globulin Ratio 0.66 Medications Medications Current Medications Acetaminophen (Tylenol Tab) 650 mg Q6H PRN PO PAIN AND OR ELEVATED TEMP; Start 07/13/16 at 16:30 Ondansetron HCl (Zofran Inj) 4 mg Q4H PRN IV NAUSEA AND/OR VOMITING Last administered on 07/20/16 05:26; Admin Dose 4 MG; Start 07/13/16 at 16:30 Morphine Sulfate (morphine) 2 mg Q4H PRN IV PAIN LEVEL 7-10 Last administered on 07/21/16 21:56; Admin Dose 2 MG; Start 07/13/16 at 16:30 Bisacodyl (Dulcolax Supp) 10 mg DAILY PRN [place] CONSTIPATION Last administered on 07/15/16 15:42; Admin Dose 10 MG; Start 07/15/16 at 15:00 Megestrol Acetate (Megace) 80 mg DAILY PO Last administered on 07/19/16 09:00; Admin Dose 80 MG; Start 07/18/16 at 09:00 Pantoprazole (Protonix Iv) 40 mg DAILY@06 IV Last administered on 07/22/16 05: 31; Admin Dose 40 MG; Start 07/20/16 at 06:00 Hydralazine HCl 10 mg 10 mg Q6H PRN IV ELEVATED SYSTOLIC BP; Start 07/19/16 at 06:30 Potassium Chloride 10 meq/ Dextrose/Sodium Chloride 1,005 ml @ 125 mls/hr Q8H3M IV Last administered on 07/22/16 05:32; Admin Dose 125 MLS/HR; Start 07/20 at 18:00 Levetiracetam (Keppra 500 Mg/ 100ml (Pmx)) 100 ml @ 400 mls/hr Q12 IVPB Last administered on 07/21/16 20:28; Admin Dose 400 MLS/HR; Start 07/21/16 at 00:07 Dronabinol 2.5 mg 2.5 mg BID PO ; Start 07/21/16 at 21:00 Ceftriaxone Sodium (Rocephin) 50 ml @ 100 mls/hr Q24H IVPB Last administered on 07/21/16 17:53; Admin Dose 100 MLS/HR; Start 07/21/16 at 16:00 TOSRI MD Jul 22, 2016 07:58
[2016-07-22] MEDS: MEGESTROL 40 MG TAB PO SCH (09:00)
[2016-07-22] MEDS: DRONABINOL 2.5 MG CAP PO SCH ×2 (09:00→19:39)
[2016-07-22] MEDS: LEVETIRACETAM 500 MG (PMX) 100 ML IVPB SCH ×2 (09:56→20:44)
[2016-07-22] MEDS: morphine 2 MG INJ IV PRN (10:00)
--- NOTE | 2016-07-22 10:30 | CONS ---
Date/Time of Note Date/Time of Note DATE: 07/22/16 TIME: 10:26 Assessment/Plan Assessment/Plan Chief Complaint/Hosp Course IMPRESSION: 1. Metastatic liver disease. 2. Retroperitoneal and mediastinal lymphadenopathy. 3. High CEA. 4. History of black stool. 5. Constipation. 6. Strong family history of colon cancer. 7. Anorexia and weight loss. 8. Status post left inguinal node biopsy 9. Dysphagia Plan Continue on anti-seizure medication will ask primary and Dr. Stahl (who I am covering) why we need to insert NG if patient already as a G-tube continue current supportive care Problems: Consultation Date/Type/Reason Admit Date/Time Jul 13, 2016 at 13:20 Initial Consult Date 07/14/16 Type of Consultation: GI Referring Provider: MK VALLE MD 24 HR Interval Summary Subjective hx not possible: pt non-verbal Exam/Review of Systems Vital Signs Vitals Vital Signs Date Time Temp Pulse Resp B/P Pulse Ox O2 Delivery O2 Flow Rate FiO2 07/22/16 08:00 130 07/22/16 07:00 24 91/51 98 Nasal Cannula 07/22/16 04:00 98.9 07/22/16 02:52 2.0 27 Intake and Output 07/21/16 07/21/16 07/22/16 14:59 22:59 06:59 Intake Total 1100 ml 1200 ml 975 ml Output Total 40 ml 520 ml 150 ml Balance 1060 ml 680 ml 825 ml Exam Constitutional: frail, non-verbal Psych: confusion Head: atraumatic, normocephalic Eyes: EOMI, nl conjunctiva, nl lids, nl sclera ENMT: mucosa pink and moist, nl external ears & nose, nl lips & teeth, nl nasal mucosa & septum Neck: non-tender, supple Respiratory: clear to auscultation, normal air movement Cardiovascular: nl pulses, regular rate and rhythm Gastrointestinal: bowel sounds, non-tender, other (GT c/d/i), soft Results Result Diagram: 07/22/16 0435 07/22/16 0435 Results 24 hrs Laboratory Tests Test 07/21/16 18:30 07/22/16 04:35 Potassium Level 3.2 L 3.7 White Blood Count 16.2 #H Red Blood Count 3.82 L Hemoglobin 10.8 L Hematocrit 34.6 L Mean Corpuscular Volume 90.6 Mean Corpuscular Hemoglobin 28.3 L Mean Corpuscular Hemoglobin Concent 31.2 L Red Cell Distribution Width 19.0 H Platelet Count 208 Mean Platelet Volume 10.1 Neutrophils % 85.0 H Lymphocytes % 6.2 L Monocytes % 7.0 Eosinophils % 0.5 Basophils % 0.4 Nucleated Red Blood Cells % 0.6 H Neutrophils # 13.8 H Lymphocytes # 1.0 Monocytes # 1.1 H Eosinophils # 0.1 Basophils # 0.1 Nucleated Red Blood Cells # 0.1 H Sodium Level 145 H Chloride Level 111 H Carbon Dioxide Level 17 L Anion Gap 21 #H Blood Urea Nitrogen 14 Creatinine 1.26 H Glucose Level 89 Calcium Level 7.3 L Total Bilirubin 2.4 H Direct Bilirubin 1.60 H Indirect Bilirubin 0.8 Aspartate Amino Transf (AST/SGOT) 644 H Alanine Aminotransferase (ALT/SGPT) 114 H Alkaline Phosphatase 409 H Total Protein 5.5 L Albumin 2.2 L Globulin 3.30 H Albumin/Globulin Ratio 0.66 Medications Medications Current Medications Acetaminophen (Tylenol Tab) 650 mg Q6H PRN PO PAIN AND OR ELEVATED TEMP; Start 07/13/16 at 16:30 Ondansetron HCl (Zofran Inj) 4 mg Q4H PRN IV NAUSEA AND/OR VOMITING Last administered on 07/20/16 05:26; Admin Dose 4 MG; Start 07/13/16 at 16:30 Morphine Sulfate (morphine) 2 mg Q4H PRN IV PAIN LEVEL 7-10 Last administered on 07/22/16 10:00; Admin Dose 2 MG; Start 07/13/16 at 16:30 Bisacodyl (Dulcolax Supp) 10 mg DAILY PRN [place] CONSTIPATION Last administered on 07/15/16 15:42; Admin Dose 10 MG; Start 07/15/16 at 15:00 Megestrol Acetate (Megace) 80 mg DAILY PO Last administered on 07/19/16 09:00; Admin Dose 80 MG; Start 07/18/16 at 09:00 Pantoprazole (Protonix Iv) 40 mg DAILY@06 IV Last administered on 07/22/16 05: 31; Admin Dose 40 MG; Start 07/20/16 at 06:00 Hydralazine HCl 10 mg 10 mg Q6H PRN IV ELEVATED SYSTOLIC BP; Start 07/19/16 at 06:30 Potassium Chloride 10 meq/ Dextrose/Sodium Chloride 1,005 ml @ 125 mls/hr Q8H3M IV Last administered on 07/22/16 05:32; Admin Dose 125 MLS/HR; Start 07/20 at 18:00 Levetiracetam (Keppra 500 Mg/ 100ml (Pmx)) 100 ml @ 400 mls/hr Q12 IVPB Last administered on 07/22/16 09:56; Admin Dose 400 MLS/HR; Start 07/21/16 at 00:07 Dronabinol 2.5 mg 2.5 mg BID PO ; Start 07/21/16 at 21:00 Ceftriaxone Sodium (Rocephin) 50 ml @ 100 mls/hr Q24H IVPB Last administered on 07/21/16 17:53; Admin Dose 100 MLS/HR; Start 07/21/16 at 16:00 RASHAD PARKER MD Jul 22, 2016 10:30
[2016-07-22] MEDS ORDERED: SOD CHLORIDE 0.9% 500 ML IV ONE (15:00)
[2016-07-22] MEDS: CEFTRIAXONE 1 GM/50 ML (PMX) 50 ML IVPB SCH (19:02)
--- NOTE | 2016-07-22 19:26 | CONS ---
DATE OF ADMISSION: 07/13/2016 DATE OF CONSULTATION: 07/22/2016 PALLIATIVE CONSULTATION The entire information is taken from patient's medical records, as well as speaking to his 6 sibling s available in the room. HISTORY OF PRESENT ILLNESS: This is a 61-year-old male, who was diagnosed with widely-metastatic ma lignancy with widespread intraabdominal lesions. Please refer to the extensive abdominal CT scan, w hich was done at [facility] on 07/14/2016. Essentially, the patient has hilar met astasis, mediastinal lymph node enlargement, multiple hepatic metastases, extensive periportal mesen teric retroperitoneal metastatic lymphadenopathy, additional metastatic retrocrural pelvic sidewall. Inguinal lymph nodes are identified, as well as carcinomatosis of the mesentery with ascites, bila teral benign hepatic cysts, bilateral adrenal masses. The patient apparently had been very symptoma tic to presenting to the hospital with increasing abdominal discomfort, weight loss of up to 30 poun ds over the last 3 months . 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 Additionally, immunohistochemical stain was sent f or evaluation. Unfortunately, during this hospitalization, the patient has required admission to e intensive care unit for generalized seizure, profound fluid and electrolyte abnormalities, encepha lopathy presumed to be secondary to widely-metastatic liver mets, and at the time of this dictation, remains encephalopathic. Dr. Sheela Kowalski has spoken to family members today, 07/22/2016. She mad e it compassionately clear that the patient has a terminal medical diagnosis and a very poor functio nal status, and that he is not a candidate for any aggressive chemotherapy. It is noted that the mary maloney remains encephalopathic. He is receiving aggressive care, including fluid and electrolyte abn ormalities have been corrected. He is on anti-seizure medication Keppra, Marinol, receiving lactulo se enemas, and antibiotic coverage, as well as Protonix. From a neurological standpoint, he has not improved. I have done my preliminary physical examination on this patient. BACKGROUND HISTORY: The patient, per family, has a history of approximately 6-8 beers on a daily ba sis, but according to the family members he has done this for a long time. He stopped approximately 2 weeks ago. His understanding is in question at this time, since he is encephalopathic. The hope s of the family members are that he, #1 does not suffer, and if at all possible, that he becomes sta ble enough that he is able to go home with hospice care. Fears, strengths, cultural preferences, and communication preferences have been clearly outlined wit h the patient's family, and the fact that we will be very transparent with his hospital diagnosis an d any day-to-day changes that occur. A long discussion was done with 7 female siblings. There is a primary decision maker, who is not available at this time; however, she was called and conferenced i n by speaker phone at that time of this family conference. There is another sibling who is en route from the [facility], and is sure to arrive sometime tonight. They made it very clear that would li ke him to make decisions on his own, but I discussed with them that family members may need to be fraser rrogates and have to make a decision on his behalf, insofar as ongoing level of care. I discussed t he fact that he would not survive cardiopulmonary resuscitation in the event that he would deteriora te suddenly, which is a very high probability, but in lieu of that, we discussed trying to get the p atient home to his environment, as he would see fit. We addressed his pain control, as family member s were concerned that he did have ongoing abdominal discomfort. I made changes in his pain regimen from morphine to fentanyl. I discussed with family members once again that they have legal and poss ible authority to make any decisions since he is encephalopathic at this time. There is no wh ich is available in the chart, no advanced directive either. I will discuss that with family member s. The goals of care at this point is try and get the patient home pending recommendations from the [facility] If she is in agreement, and if this plan of care is okay w ith members of his healthcare team, we will try to stabilize him and get him home with hospice care as soon as possible. Dictated By: KELLY SERRANO MD, LP/PENNY Conf#: [id number] DID#: [id number]
[2016-07-22] MEDS: LACTULOSE ENEMA 1,000 ML BTL PR SCH (21:18)
[2016-07-22] MEDS: FENTAnyl 50 MCG/ML VIAL IV PRN (23:49)
[2016-07-23] VITALS (18 sets, daily range): BP systolic 86–113; BP diastolic 49–69; PULSE 115–126; RESP 22–35
[2016-07-23] MEDS: LORAZEPAM 2 MG INJ IV PRN ×3 (00:25→16:59)
[2016-07-23] MEDS: FENTAnyl 50 MCG/ML VIAL IV PRN ×3 (04:17→15:30)
[2016-07-23 05:48] LABS: ADD SCAN DIFF NO
[2016-07-23 05:51] LABS: BASOPHIL # 0.1 10^3/ul (0.0-0.1); BASOPHILS % 0.4 % (0.0-2.0); EOSINOPHILS # 0.1 10^3/ul (0.0-0.5); EOSINOPHILS % 0.8 % (0.0-7.0); HEMATOCRIT 33.3 % (42.0-52.0); HEMOGLOBIN 10.4 g/dl (14.0-18.0); MEAN CORPUSCULAR HEMOGLOBIN 29.4 pg (29.0-33.0); MEAN CORPUSCULAR HGB CONC 31.2 g/dl (32.0-37.0); MEAN CORPUSCULAR VOLUME 94.1 fl (82.0-101.0); MEAN PLATELET VOLUME 10.3 fl (7.4-10.4); MONOCYTE # 0.9 10^3/ul (0.3-0.9); MONOCYTES % 5.1 % (0.0-11.0); NEUTROPHIL # 14.7 10^3/ul (1.6-7.5); NEUTROPHILS % 86.6 % (39.0-77.0); NUCLEATED RED BLOOD CELLS # 0.1 10^3/ul (0.0-0.0); NUCLEATED RED BLOOD CELLS% 0.7 /100WBC (0.0-0.0); PLATELET COUNT 206 10^3/UL (140-415); RED BLOOD COUNT 3.54 10^6/ul (4.70-6.10); RED CELL DISTRIBUTION WIDTH 19.5 % (11.5-14.5); WHITE BLOOD COUNT 16.9 10^3/ul (4.8-10.8)
[2016-07-23] MEDS: PANTOPRAZOLE 40 MG INJ IV SCH (06:15)
[2016-07-23] MEDS: POTASSIUM CHLORIDE 10 MEQ in DEXTROSE 5%-0.9% NACL 1,000 ML IV SCH ×2 (06:16→10:24)
[2016-07-23 06:22] LABS: ALBUMIN 2.2 g/dl (3.3-4.9); POTASSIUM 4.3 mmol/L (3.5-5.1)
[2016-07-23 06:24] LABS: ALBUMIN/GLOBULIN RATIO 0.64
[2016-07-23 06:25] LABS: BILIRUBIN,INDIRECT 0.8 mg/dl (0-1.1); BILIRUBIN,TOTAL 2.8 mg/dl (0.2-1.3); CALCIUM 7.1 mg/dl (8.4-10.2); CREATININE 2.49 mg/dl (0.61-1.24); TOTAL PROTEIN 5.6 g/dl (6.1-8.1)
[2016-07-23] MEDS: LEVALBUTEROL (NEB) 1.25 MG/0.5 ML AMP HHN PRN ×2 (07:12→12:29)
--- NOTE | 2016-07-23 08:05 | CONS ---
Date/Time of Note Date/Time of Note DATE: 07/23/16 TIME: 08:00 Assessment/Plan Assessment/Plan Chief Complaint/Hosp Course Mr. Munguia is a 61-year-old male with innumerable hepatic lesions seen on CT at [facility] and [facility] although the latter was without contrast presumably due to renal insufficiency, likely metastatic disease, now s/p witnessed seizure 07/20/16. Imaging CT CAP 07/14/16 1. A left hilar mass measuring up to 2.4 cm in height by 2.7 cm transverse by 2.6 cm AP is identified to may be the result of the lung cancer. 2. There enlarged superior mediastinal and mediastinal lymph nodes. 3. Atherosclerotic vascular disease involving the aortic arch and coronary arteries. 4. Trace right pleural effusion. 5. Multiple hepatic metastases. 6. Extensive periportal, mesenteric, retroperitoneal metastatic lymphadenopathy. Additional metastatic retrocrural, pelvic sidewall and inguinal lymph nodes are identified as described. Carcinomatosis of the mesentery with ascites. 7. Bilateral benign hepatic cysts. 8. Bilateral adrenal masses as described. - Continue hydration, PPI, pain medications. - f/u blood and urine cultures to r/o infection given weakness, dehydration, failure to thrive and leukocytosis - s/p EGD 07/17/16 that demonstrated gastritis, esophagitis, intraluminal lesion created by metastatic liver disease, large hemorrhoids, 2.5 cm polyp s/p snare polypectomy. Path of gastric and rectal polyp biopsy showed no high grade dysplasia or malignancy. This finding cannot explain the metastasis in the liver. Patient definitely needs either liver biopsy or lymph node biopsy to clinch the primary diagnosis. - s/p satisfactory ultrasound-guided right inguinal lymphadenopathy biopsy today . Prelim results discussed with Dr. Marlow and show metastatic squamous or transitional cell carcinoma, with markers negative for lung, prostate or neuroendocrine. Pending additional stains for urothelial markers. Pending CA type ID which was sent and may take 1 week to help identify primary. - CEA elevated at 278, CA 19-9 and AFP within normal limits. Hepatitis panel negative. - Will continue to follow. Treatment will be determined based on path results. At this point, the patient is not in a state that would allow him to undergo chemotherapy. - Patient now s/p seizure with brain CT limited by motion. Recommend repeat examination when clinically appropriate or MRI the brain. At this point, may not tolerate another CT scan; he is somewhat sedated with morphine however RN notes BP drops so may not be safe at this point to repeat scan. - Patient also with poor nutrition. I had an extensive discussion with the family, including sister Ty and another sister and brother in law, that Thanh is terminally ill and has a poor functional status and that often at the end of life, their decreased appetite is a consequence of rather than a cause of their decline. - Patient also with elevated bilirubin with ammonia 55, likely related to extensive hepatic mets with possible component of shock liver. Bilirubin now rising to 2.8, mostly direct. - Acute renal failure and hypernatremia, likely related to dehydration, management per primary team. Creatinine now rising to 2.49 with Na rising to 148 despite IV fluid bolus yesterday per primary team. - Altered mental status may be a component of hepatic encephalopathy due to extensive liver mets (elevated ammonia), narcotics, possible brain mets. Patient started on lactulose suppositories yesterday per GI but not well tolerated. - I discussed code status with the family and recommended against heroic measures such as chest compressions, shocking or intubation as if he were to have a catastrophic event, the changes of returning to a level with meaningful quality of life would be low and would likely be more harmful than beneficial. Now DNR/DNI. - Appreciate palliative care Dr. Peralta's discussion and recommendations, including switching to fentanyl, goals of care, advanced directive. Family wishes to take patient home with hospice. Will continue breathing treatments for comfort, and add scopolamine patch and atropine for secretions. Patient's sister Ty work phone , cell phone Problems: Consultation Date/Type/Reason Admit Date/Time Jul 13, 2016 at 13:20 Initial Consult Date 07/14/16 Type of Consultation: Hematology/Oncology Referring Provider: MK VALLE MD 24 HR Interval Summary Free Text/Dictation Patient did not tolerate lactulose enema well, with lots of gas and discomfort. Patient was more alert yesterday and able to talk with family. Patient wants to go home and family wishes to bring patient home with hospice. Exam/Review of Systems Vital Signs Vitals Vital Signs Date Time Temp Pulse Resp B/P Pulse Ox O2 Delivery O2 Flow Rate FiO2 07/23/16 07:12 118 30 07/23/16 07:00 96/55 94 Nasal Cannula 2.0 07/23/16 05:00 98.0 07/22/16 02:52 27 Intake and Output 07/22/16 07/22/16 07/23/16 15:00 23:00 07:00 Intake Total 175 ml Output Total 115 ml 25 ml 40 ml Balance 60 ml -25 ml -40 ml Exam Constitutional: frail, non-verbal, +secretions Psych: confusion Head: normocephalic Eyes: icteric Neck: supple Respiratory: rhonchi Cardiovascular: regular rate and rhythm Gastrointestinal: non-tender, soft Musculoskeletal: nl extremities to inspection Results Result Diagram: 07/23/16 0452 07/23/16 0452 Results 24 hrs Laboratory Tests Test 07/23/16 04:52 White Blood Count 16.9 H Red Blood Count 3.54 L Hemoglobin 10.4 L Hematocrit 33.3 L Mean Corpuscular Volume 94.1 Mean Corpuscular Hemoglobin 29.4 Mean Corpuscular Hemoglobin Concent 31.2 L Red Cell Distribution Width 19.5 H Platelet Count 206 Mean Platelet Volume 10.3 Neutrophils % 86.6 H Lymphocytes % 6.0 L Monocytes % 5.1 Eosinophils % 0.8 Basophils % 0.4 Nucleated Red Blood Cells % 0.7 H Neutrophils # 14.7 H Lymphocytes # 1.0 Monocytes # 0.9 Eosinophils # 0.1 Basophils # 0.1 Nucleated Red Blood Cells # 0.1 H Sodium Level 148 H Potassium Level 4.3 Chloride Level 115 H Carbon Dioxide Level 15 L Anion Gap 22 H Blood Urea Nitrogen 19 Creatinine 2.49 #H Glucose Level 74 Calcium Level 7.1 L Total Bilirubin 2.8 H Direct Bilirubin 2.00 H Indirect Bilirubin 0.8 Aspartate Amino Transf (AST/SGOT) 571 H Alanine Aminotransferase (ALT/SGPT) 106 H Alkaline Phosphatase 344 H Total Protein 5.6 L Albumin 2.2 L Globulin 3.40 H Albumin/Globulin Ratio 0.64 Medications Medications Current Medications Acetaminophen (Tylenol Tab) 650 mg Q6H PRN PO PAIN AND OR ELEVATED TEMP; Start 07/13/16 at 16:30 Ondansetron HCl (Zofran Inj) 4 mg Q4H PRN IV NAUSEA AND/OR VOMITING Last administered on 07/20/16t 05:26; Admin Dose 4 MG; Start 07/13/16 at 16:30 Bisacodyl (Dulcolax Supp) 10 mg DAILY PRN [place] CONSTIPATION Last administered on 07/15/16 15:42; Admin Dose 10 MG; Start 07/15/16 at 15:00 Megestrol Acetate (Megace) 80 mg DAILY PO Last administered on 07/19/16 09:00; Admin Dose 80 MG; Start 07/18/16 at 09:00 Pantoprazole (Protonix Iv) 40 mg DAILY@06 IV Last administered on 07/23/16 06: 15; Admin Dose 40 MG; Start 07/20/16 at 06:00 Hydralazine HCl 10 mg 10 mg Q6H PRN IV ELEVATED SYSTOLIC BP; Start 07/19/16 at 06:30 Potassium Chloride 10 meq/ Dextrose/Sodium Chloride 1,005 ml @ 125 mls/hr Q8H3M IV Last administered on 07/23/16 06:16; Admin Dose 125 MLS/HR; Start 07/20 at 18:00 Levetiracetam (Keppra 500 Mg/ 100ml (Pmx)) 100 ml @ 400 mls/hr Q12 IVPB Last administered on 07/22/16 20:44; Admin Dose 400 MLS/HR; Start 07/21/16 at 00:07 Dronabinol 2.5 mg 2.5 mg BID PO ; Start 07/21/16 at 21:00 Ceftriaxone Sodium (Rocephin) 50 ml @ 100 mls/hr Q24H IVPB Last administered on 07/22/16 19:02; Admin Dose 100 MLS/HR; Start 07/21/16 at 16:00 Lactulose (Lactulose Enema) 100 ml BID SC Last administered on 07/22/16 21:18; Admin Dose 100 ML; Start 07/22/16 at 21:00 Fentanyl (Sublimaze) 25 mcg Q3H PRN IV PAIN Last administered on 07/23/16 04:17 ; Admin Dose 25 MCG; Start 07/22/16 at 16:00 Lorazepam (Ativan) 1 mg Q6H PRN IV Anxiety Last administered on 07/23/16 06:15 ; Admin Dose 1 MG; Start 07/23/16 at 00:30 SRI RODRIGUEZ MD Jul 23, 2016 08:05
[2016-07-23] MEDS: LACTULOSE ENEMA 1,000 ML BTL PR SCH (08:10)
[2016-07-23] MEDS: DRONABINOL 2.5 MG CAP PO SCH (08:11)
[2016-07-23] MEDS: MEGESTROL 40 MG TAB PO SCH (08:11)
[2016-07-23] MEDS: LEVETIRACETAM 500 MG (PMX) 100 ML IVPB SCH (09:08)
--- NOTE | 2016-07-23 10:28 | CONS ---
Date/Time of Note Date/Time of Note DATE: 07/23/16 TIME: 10:25 Assessment/Plan Assessment/Plan Chief Complaint/Hosp Course IMPRESSION: 1. Metastatic liver disease with unknown primary 2. Retroperitoneal and mediastinal lymphadenopathy. 3. High CEA. 4. History of black stool. 5. Constipation. 6. Strong family history of colon cancer. 7. Anorexia and weight loss. 8. Status post left inguinal node biopsy 9. Dysphagia Plan Continue on anti-seizure medication continue lactulose enema for his constipation continue current supportive care Agree with palliative care Dr. Stahl to resume care of this patient tomorrow Problems: Consultation Date/Type/Reason Admit Date/Time Jul 13, 2016 at 13:20 Initial Consult Date 07/14/16 Type of Consultation: GI Referring Provider: MK VALLE MD 24 HR Interval Summary Free Text/Dictation A lot of family at bedside and I answered questions from GI perspective. Subjective hx not possible: pt non-verbal Constitutional: disoriented Exam/Review of Systems Vital Signs Vitals Vital Signs Date Time Temp Pulse Resp B/P Pulse Ox O2 Delivery O2 Flow Rate FiO2 07/23/16 09:00 119 35 112/68 97 Nasal Cannula 2.0 07/23/16 08:00 98.5 07/22/16 02:52 27 Intake and Output 07/22/16 07/22/16 07/23/16 14:59 22:59 06:59 Intake Total 175 ml Output Total 135 ml 25 ml 40 ml Balance 40 ml -25 ml -40 ml Exam Constitutional: frail, non-verbal Psych: confusion Head: atraumatic, normocephalic ENMT: mucosa pink and moist, nl external ears & nose, nl lips & teeth, nl nasal mucosa & septum Neck: non-tender, supple Respiratory: clear to auscultation, normal air movement Cardiovascular: nl pulses, regular rate and rhythm Gastrointestinal: bowel sounds, soft Results Result Diagram: 07/23/16 0452 07/23/16 0452 Results 24 hrs Laboratory Tests Test 07/23/16 04:52 White Blood Count 16.9 H Red Blood Count 3.54 L Hemoglobin 10.4 L Hematocrit 33.3 L Mean Corpuscular Volume 94.1 Mean Corpuscular Hemoglobin 29.4 Mean Corpuscular Hemoglobin Concent 31.2 L Red Cell Distribution Width 19.5 H Platelet Count 206 Mean Platelet Volume 10.3 Neutrophils % 86.6 H Lymphocytes % 6.0 L Monocytes % 5.1 Eosinophils % 0.8 Basophils % 0.4 Nucleated Red Blood Cells % 0.7 H Neutrophils # 14.7 H Lymphocytes # 1.0 Monocytes # 0.9 Eosinophils # 0.1 Basophils # 0.1 Nucleated Red Blood Cells # 0.1 H Sodium Level 148 H Potassium Level 4.3 Chloride Level 115 H Carbon Dioxide Level 15 L Anion Gap 22 H Blood Urea Nitrogen 19 Creatinine 2.49 #H Glucose Level 74 Calcium Level 7.1 L Total Bilirubin 2.8 H Direct Bilirubin 2.00 H Indirect Bilirubin 0.8 Aspartate Amino Transf (AST/SGOT) 571 H Alanine Aminotransferase (ALT/SGPT) 106 H Alkaline Phosphatase 344 H Total Protein 5.6 L Albumin 2.2 L Globulin 3.40 H Albumin/Globulin Ratio 0.64 Medications Medications Current Medications Acetaminophen (Tylenol Tab) 650 mg Q6H PRN PO PAIN AND OR ELEVATED TEMP; Start 07/13/16 at 16:30 Ondansetron HCl (Zofran Inj) 4 mg Q4H PRN IV NAUSEA AND/OR VOMITING Last administered on 07/20/16 05:26; Admin Dose 4 MG; Start 07/13/16 at 16:30 Bisacodyl (Dulcolax Supp) 10 mg DAILY PRN [place] CONSTIPATION Last administered on 07/15/16 15:42; Admin Dose 10 MG; Start 07/15/16 at 15:00 Megestrol Acetate (Megace) 80 mg DAILY PO Last administered on 07/19/16 09:00; Admin Dose 80 MG; Start 07/18/16 at 09:00 Pantoprazole (Protonix Iv) 40 mg DAILY@06 IV Last administered on 07/23/16 06: 15; Admin Dose 40 MG; Start 07/20/16 at 06:00 Hydralazine HCl 10 mg 10 mg Q6H PRN IV ELEVATED SYSTOLIC BP; Start 07/19/16 at 06:30 Potassium Chloride 10 meq/ Dextrose/Sodium Chloride 1,005 ml @ 125 mls/hr Q8H3M IV Last administered on 07/23/16 06:16; Admin Dose 125 MLS/HR; Start 07/20 at 18:00 Levetiracetam (Keppra 500 Mg/ 100ml (Pmx)) 100 ml @ 400 mls/hr Q12 IVPB Last administered on 07/23/16 09:08; Admin Dose 400 MLS/HR; Start 07/21/16 at 00:07 Dronabinol 2.5 mg 2.5 mg BID PO ; Start 07/21/16 at 21:00 Ceftriaxone Sodium (Rocephin) 50 ml @ 100 mls/hr Q24H IVPB Last administered on 07/22/16 19:02; Admin Dose 100 MLS/HR; Start 07/21/16 at 16:00 Lactulose (Lactulose Enema) 100 ml BID NV Last administered on 07/22/16 21:18; Admin Dose 100 ML; Start 07/22/16 at 21:00 Fentanyl (Sublimaze) 25 mcg Q3H PRN IV PAIN Last administered on 07/23/16 04:17 ; Admin Dose 25 MCG; Start 07/22/16 at 16:00 Lorazepam (Ativan) 1 mg Q6H PRN IV Anxiety Last administered on 07/23/16 06:15 ; Admin Dose 1 MG; Start 07/23/16 at 00:30 RASHAD PARKER MD Jul 23, 2016 10:28
[2016-07-23] MEDS ORDERED: ATROPINE 1% 5 ML OPH SL PRN (12:30)
[2016-07-23] MEDS ORDERED: SCOPOLAMINE 1.5 MG PATCH TRANSDERM SCH (12:30)
[2016-07-23] MEDS ORDERED: ATROPINE SL PRN (12:30)
[2016-07-23] MEDS: CEFTRIAXONE 1 GM/50 ML (PMX) 50 ML IVPB SCH (15:30)
--- NOTE | 2016-07-23 16:40 | QN ---
Documentation Comment [id number] MK VALLE MD Jul 23, 2016 16:40
--- NOTE | 2016-07-23 16:41 | PDOCDIS ---
Discharge Instructions CONDITION Patient Condition: Stable HOME CARE INSTRUCTIONS: Special Diet: as tolerated FOLLOW UP/APPOINTMENTS Appointments f/u hospice team MK VALLE MD Jul 23, 2016 16:41
[2016-07-23] MEDS ORDERED: ACET325T40 PO (16:43)
[2016-07-23] MEDS ORDERED: BISA10SU75 PR (16:43)
[2016-07-23] MEDS ORDERED: DRON2.5C PO (16:43)
[2016-07-23] MEDS ORDERED: FENT50VI IV (16:43)
[2016-07-23] MEDS ORDERED: SCOP1PAT TRANSDERM (16:43)
--- NOTE | 2016-07-24 03:43 | DS ---
DATE OF ADMISSION: 07/13/2016 DATE OF DISCHARGE: 07/23/2016 HOSPITAL COURSE: Mr. Thanh Munguia is a 61-year-old male with no significant past medical history, recently diagnosed to have metastatic malignancy. In addition, patient has metastatic cancer, possi alf GI, hyponatremia, anemia, metabolic acidosis, leukocytosis. The patient underwent biopsy of lym ph node, right groin which was consistent with metastatic poorly differentiated carcinoma. The anel ent was seen by Dr. Kowalski and Dr. Charles in consultation and Dr. Stahl in consultation as well as the p atient was seen by Dr. Rob Angel. Patient was also seen by Dr. Peralta. He discussed with the [facility] [place]. The patient was in ICU due to rapid response was called. The patient became weak, lethargic to the point he was not able to communicate much. His family members arrived from all over the plac e and they discussed the case with all the physicians and they decided to make the patient DNR and w ill go into hospice care. Patient is going to be discharged to home with hospice care at the time o f discharge. DISCHARGE DIAGNOSES: Include metastatic liver disease, retroperitoneal mediastinal lymph node, elev ated CEA, history of black stools, family history of colon cancer, anorexia, status post biopsy of t he lymph node. The patient has dysphagia. The patient has a hilar mass. The patient has atheroscle rotic vascular disease, pleural effusions, multiple hepatic metastases, extensive periportal mesente александр and retroperitoneal mesenteric lymphadenopathy. The patient has masses. DISCHARGE MEDICATIONS: Patient to continue on pain medication under hospice. Patient is going to b e discharged to home with hospice care. DISPOSITION: The patient is stable at the time of discharge home with hospice. Dictated By: MK VALLE MD BS/NTS Conf#: [id number] DID#: [id number]
== END 2016-07-23 17:25 | disposition hospice, home (50) | DRG 988 ==
LOC: E/R 12:22 → PP2 13:20 → ICU 07-20 15:40
PROVIDERS: ADMIT Internal Medicine Nephrology; ATTEND Internal Medicine Nephrology
PROC: 0DBP8ZX Excision of Rectum, Via Natural or Artificial Opening Endoscopic, Diagnostic (ICD-10-PCS; 2016-07-13)
PROC: 0DB68ZX Excision of Stomach, Via Natural or Artificial Opening Endoscopic, Diagnostic (ICD-10-PCS; 2016-07-13)
PROC: 30233K1 Transfusion of Nonautologous Frozen Plasma into Peripheral Vein, Percutaneous Approach (ICD-10-PCS; 2016-07-16)
PROC: 07BH3ZX Excision of Right Inguinal Lymphatic, Percutaneous Approach, Diagnostic (ICD-10-PCS; principal; 2016-07-18)
DX: C78.7 Secondary malignant neoplasm of liver and intrahepatic bile duct (principal); E87.1 Hypo-osmolality and hyponatremia; J90 Pleural effusion, not elsewhere classified; N17.9 Acute kidney failure, unspecified; E87.2 Acidosis; C78.6 Secondary malignant neoplasm of retroperitoneum and peritoneum; R65.10 Systemic inflammatory response syndrome (SIRS) of non-infectious origin without acute organ dysfunction; C80.1 Malignant (primary) neoplasm, unspecified; R63.0 Anorexia; E86.0 Dehydration; D64.9 Anemia, unspecified; D72.829 Elevated white blood cell count, unspecified; K20.9 Esophagitis, unspecified; K62.1 Rectal polyp; K29.60 Other gastritis without bleeding; K64.9 Unspecified hemorrhoids; K59.00 Constipation, unspecified; E27.9 Disorder of adrenal gland, unspecified; F17.200 Nicotine dependence, unspecified, uncomplicated; E87.6 Hypokalemia; I25.10 Atherosclerotic heart disease of native coronary artery without angina pectoris; I88.0 Nonspecific mesenteric lymphadenitis; I70.0 Atherosclerosis of aorta; R91.8 Other nonspecific abnormal finding of lung field; R63.4 Abnormal weight loss; R13.10 Dysphagia, unspecified; G40.309 Generalized idiopathic epilepsy and epileptic syndromes, not intractable, without status epilepticus; Z74.01 Bed confinement status; Z80.0 Family history of malignant neoplasm of digestive organs; Z66 Do not resuscitate; Z51.5 Encounter for palliative care; Z97.8 Presence of other specified devices
CPT/HCPCS: 36415; 36430; 36600; 70450; 71010; 71260; 74177; 76705; 76942; 80048; 80053; 81001; 81003; 82105; 82140; 82378; 82550; 82553; 82803; 82962; 83690; 83735; 84100; 84132; 84484; 85025; 85610; 85730; 86301; 86704; 86709; 86803; 86850; 86900; 86901; 87040; 87086; 87340; 88104; 88305; 88312; 88313; 88341; 88342; 90686; 93005; 94640; 94664; 96374; C9113; J0696; J1953; J2060; J2270; J2405; J3010; J3480; J7040; J7042; P9059; Q9967